=== PATIENT | female | born 1990 | race African-American/Black ===

== ENCOUNTER 2016-03-11 18:15 | Emergency (ER) | payer MEDICAID ==
--- NOTE | 2016-03-11 18:43 | ER Document Report ---
ED Medical Screen (RME) - General Stated Complaint: ABDOMINAL CRAMPING Mode of Arrival: Ambulatory Information source: Patient Notes: Patient presents to the emergency department with left lower quadrant and lower abdominal pain. She reports pain for the past 2-3 weeks. She was evaluated by a provider. No results noted. Last menses was in December. I greeted and performed a rapid initial assessment of this patient. Comprehensive ED assessment and evaluation of the patient, analysis of test results and completion of the medical decision making process will be conducted by additional ED providers. TRAVEL OUTSIDE OF THE [place] IN LAST 30 DAYS: No - Related Data Allergies/Adverse Reactions: onion Allergy (Uncoded 03/11/16 18:42) Past Medical History Pulmonary Medical History: Reports: Hx Asthma Neurological Medical History: Reports: Hx Migraine Psychiatric Medical History: Reports: Hx Attention Deficit Hyperactivity Disorder, Hx Depression Past Surgical History: Reports: Hx Section - Immunizations Hx Diphtheria, Pertussis, Tetanus Vaccination: Yes Physical Exam - Vital signs Vitals: Temp Pulse Resp BP Pulse Ox 98.4 F 96 20 136/82 H 98 03/11/16 18:38 03/11/16 18:38 03/11/16 18:38 03/11/16 18:38 03/11/16 18:38 Course - Vital Signs Vital signs: Temp Pulse Resp BP Pulse Ox 98.4 F 96 20 136/82 H 98 03/11/16 18:38 03/11/16 18:38 03/11/16 18:38 03/11/16 18:38 03/11/16 18:38
[2016-03-11 20:42] LABS: ABSOLUTE EOSINOPHILS # (AUTO) 0.1 10^3/uL (0.0-0.6); ABSOLUTE LYMPHOCYTES (AUTO) 2.4 10^3/uL (0.5-4.7); ABSOLUTE MONOCYTES (AUTO) 0.3 10^3/uL (0.1-1.4); ABSOLUTE NEUT (AUTO) 2.9 10^3/uL (1.7-8.2); BASOPHILS % (AUTO) 0.4 % (0-2); EOSINOPHILS % (AUTO) 2.1 % (0-6); HEMOGLOBIN 12.1 g/dL (12.0-15.5); HGB HCT DIFFERENCE -0.7; LYMPHOCYTES % (AUTO) 41.7 % (13-45); MEAN CORPUSCULAR HGB CONC 32.7 g/dL (32.0-36.0); MEAN CORPUSCULAR VOLUME 86 fl (80-97); MONOCYTES % (AUTO) 4.6 % (3-13); RED BLOOD COUNT 4.32 10^6/uL (3.72-5.28); RED CELL DISTRIBUTION WIDTH 13.1 % (11.5-14.0); SEGMENTED NEUTROPHILS % (AUTO) 51.2 % (42-78); WHITE BLOOD COUNT 5.8 10^3/uL (4.0-10.5)
[2016-03-11 20:49] LABS: APPEARANCE,URINE CLEAR; BILIRUBIN,URINE NEGATIVE (NEGATIVE); GLUCOSE, URINE NEGATIVE (NEGATIVE); KETONES,URINE NEGATIVE (NEGATIVE); LEUKOCYTE ESTERASE,URINE NEGATIVE (NEGATIVE); NITRITE,URINE NEGATIVE (NEGATIVE); PROTEIN,URINE NEGATIVE (NEGATIVE); URINE SPECIFIC GRAVITY 1.031; UROBILINOGEN,URINE NEGATIVE mg/dL (<2.0)
[2016-03-11 21:02] LABS: ALANINE AMINOTRANSFERASE 30 U/L (9-52); ALBUMIN 4.3 g/dL (3.5-5.0); ALKALINE PHOSPHATASE 107 U/L (38-126); ANION GAP 14 (5-19); ASPARTATE AMINO TRANSFERASE 23 U/L (14-36); BILIRUBIN,TOTAL 0.4 mg/dL (0.2-1.3); BLOOD UREA NITROGEN 14 mg/dL (7-20); CALCIUM 9.4 mg/dL (8.4-10.2); CARBON DIOXIDE 25 mmol/L (22-30); CHLORIDE 105 mmol/L (98-107); CREATININE RESULT 0.77 mg/dL (0.52-1.25); GLUCOSE 118 mg/dL (75-110); POTASSIUM 4.1 mmol/L (3.6-5.0); SODIUM 143.7 mmol/L (137-145); TOTAL PROTEIN 6.6 g/dL (6.3-8.2)
[2016-03-11] MEDS ORDERED: ONDANSETRON 4 MG TAB.RAPDIS PO ONE (22:07)
--- NOTE | 2016-03-11 22:08 | ER Document Report ---
ED GI/ - General Chief Complaint: Pelvic Pain Stated Complaint: ABDOMINAL CRAMPING Time seen by provider: 22:08 Mode of Arrival: Ambulatory Notes: Patient is a 25-year-old female that comes emergency department for chief complaint of pain in her lower abdomen/pelvic area, worse on the left side but also occasionally on the right side. She reports some nausea, denies vomiting. She denies fever, dysuria, flank pain, vaginal bleeding or discharge. Last menstrual period was December, she has had irregular periods ever since she delivered her most recent child. Patient denies any daily medications. TRAVEL OUTSIDE OF THE [place] IN LAST 30 DAYS: No - Related Data Allergies/Adverse Reactions: onion Allergy (Uncoded 03/11/16 18:42) Past Medical History - General Information source: Patient - Social History Smoking Status: Current Every Day Smoker Chew tobacco use (# tins/day): No Frequency of alcohol use: None Drug Abuse: None Lives with: Family Family History: Reviewed & Not Pertinent Patient has suicidal ideation: No Patient has homicidal ideation: No Pulmonary Medical History: Reports: Hx Asthma Neurological Medical History: Reports: Hx Migraine Renal/ Medical History: Denies: Hx Peritoneal Dialysis Psychiatric Medical History: Reports: Hx Attention Deficit Hyperactivity Disorder, Hx Depression Past Surgical History: Reports: Hx Section - Immunizations Hx Diphtheria, Pertussis, Tetanus Vaccination: Yes Hx Pneumococcal Vaccination: 02/27/11 Review of Systems - Review of Systems Constitutional: No symptoms reported EENT: No symptoms reported Cardiovascular: No symptoms reported Respiratory: No symptoms reported Gastrointestinal: See HPI Genitourinary: See HPI Female Genitourinary: See HPI Musculoskeletal: No symptoms reported Skin: No symptoms reported Hematologic/Lymphatic: No symptoms reported Neurological/Psychological: No symptoms reported Physical Exam - Vital signs Vitals: Temp Pulse Resp BP Pulse Ox 98.4 F 96 20 136/82 H 98 03/11/16 18:38 03/11/16 18:38 03/11/16 18:38 03/11/16 18:38 03/11/16 18:38 Interpretation: Normal - General General appearance: Appears well, Alert In distress: None - HEENT Head: Normocephalic, Atraumatic Eyes: Normal Pupils: PERRL - Respiratory Respiratory status: No respiratory distress Chest status: Nontender Breath sounds: Normal Chest palpation: Normal - Cardiovascular Rhythm: Regular Heart sounds: Normal auscultation Murmur: No - Abdominal Inspection: Normal Distension: No distension Bowel sounds: Normal Tenderness: Tender - Mild generalized tenderness in the lower abdomen and pelvic area. No: Guarding - Genitourinary External exam: Normal Speculum exam: Cervix closed, Vaginal discharge - Moderately large amount of whitish vaginal discharge. No: Cervix open Vaginal bleeding: None Bimanuel exam: Normal. No: Cervical motion tender - Back Back: Normal, Nontender. 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 Wet mount showing bacteria and white blood cells, physical exam showing moderately large amount of vaginal discharge. Patient treated with Rocephin, azithromycin, Flagyl, patient instructed to follow-up with primary care and return for any concerning symptoms. Patient states understanding and agreement. - Vital Signs Vital signs: Temp Pulse Resp BP Pulse Ox 98.6 F 92 16 133/88 H 97 03/12/16 00:24 03/12/16 00:24 03/12/16 00:24 03/12/16 00:24 03/12/16 00:24 - Laboratory Result Diagrams: 03/11/16 19:58 03/11/16 19:58 Laboratory results interpreted by me: 03/11/16 03/11/16 19:58 19:58 Glucose 118 H Urine Ascorbic Acid 20 H Discharge - Discharge Clinical Impression: Pelvic pain Condition: Stable Disposition: HOME, SELF-CARE Additional Instructions: Your examination and workup indicated a pelvic infection, most likely bacterial vaginosis, you have been treated for this. Complete the treatment with Flagyl prescription as directed. The ultrasound and blood work did not show any acute findings. Follow-up with your primary care provider. Return to emergency department for any concerning or worsening symptoms. Prescriptions: Metronidazole [Flagyl 500 mg Tablet] 500 mg PO BID #14 tablet Referrals: MARCO ONEILL MD [Primary Care Provider] - Follow up as needed
[2016-03-11] MEDS ORDERED: LIDOCAINE 1% INJ-PF (10 MG/ML) 30 ML SDV INJ ONE (23:53)
[2016-03-11] MEDS ORDERED: CEFTRIAXONE INJ 250 MG VIAL IM ONE (23:53)
[2016-03-11] MEDS ORDERED: METRONIDAZOLE 500 MG TABLET PO ONE (23:54)
[2016-03-11] MEDS ORDERED: AZITHROMYCIN 250 MG TABLET PO ONE (23:54)
[2016-03-12 00:31] VITALS: BP 133/88
[2016-03-12 01:13] LABS: CHLAM PCR NOT DETECTED (NOT DETECT)
== END 2016-03-12 00:31 | disposition home or self-care (01) ==
LOC: ER 18:15
DX: R10.2 Pelvic and perineal pain (principal); R11.0 Nausea; N89.8 Other specified noninflammatory disorders of vagina; N92.6 Irregular menstruation, unspecified; F17.200 Nicotine dependence, unspecified, uncomplicated; J45.909 Unspecified asthma, uncomplicated; Z91.018 Allergy to other foods
CPT/HCPCS: 99284; 96372; 36415; 87210; 84703; 85025; 80053; 81001; 87491; 87591; 76830; 93976; Q0144; S0119; J3490 ×2; J0696

== ENCOUNTER 2016-05-09 10:15 | Emergency (ER) | payer MEDICAID ==
--- NOTE | 2016-05-09 10:22 | ER Document Report ---
ED Medical Screen (RME) - General Stated Complaint: BODY PAIN Mode of Arrival: Ambulatory Information source: Patient Notes: pt c/o rectal pain, hemorrhoids. Reports her whole body hurts because of it. Complaints of some nausea but denies fever vomiting diarrhea. He has history of asthma. I have greeted and performed a rapid initial assessment of this patient. A comprehensive ED assessment and evaluation of the patient, analysis of test results and completion of the medical decision making process will be conducted by additional ED providers. TRAVEL OUTSIDE OF THE [place] IN LAST 30 DAYS: No - Related Data Allergies/Adverse Reactions: onion Allergy (Uncoded 05/09/16 10:20) Past Medical History Pulmonary Medical History: Reports: Hx Asthma Neurological Medical History: Reports: Hx Migraine Renal/ Medical History: Denies: Hx Peritoneal Dialysis Psychiatric Medical History: Reports: Hx Attention Deficit Hyperactivity Disorder, Hx Depression Past Surgical History: Reports: Hx Section - Immunizations Hx Diphtheria, Pertussis, Tetanus Vaccination: Yes Physical Exam - Vital signs Vitals: Temp Pulse Resp BP Pulse Ox 98.2 F 89 16 129/86 H 96 05/09/16 10:20 05/09/16 10:20 05/09/16 10:20 05/09/16 10:20 05/09/16 10:20 Course - Vital Signs Vital signs: Temp Pulse Resp BP Pulse Ox 98.2 F 89 16 129/86 H 96 05/09/16 10:20 05/09/16 10:20 05/09/16 10:20 05/09/16 10:20 05/09/16 10:20
[2016-05-09 11:48] LABS: APPEARANCE,URINE SLIGHTLY-CLOUDY; BILIRUBIN,URINE NEGATIVE (NEGATIVE); GLUCOSE, URINE NEGATIVE (NEGATIVE); KETONES,URINE NEGATIVE (NEGATIVE); LEUKOCYTE ESTERASE,URINE NEGATIVE (NEGATIVE); NITRITE,URINE NEGATIVE (NEGATIVE); PROTEIN,URINE NEGATIVE (NEGATIVE); URINE SPECIFIC GRAVITY 1.027
[2016-05-09 12:00] LABS: ABSOLUTE EOSINOPHILS # (AUTO) 0.1 10^3/uL (0.0-0.6); ABSOLUTE LYMPHOCYTES (AUTO) 2.2 10^3/uL (0.5-4.7); ABSOLUTE MONOCYTES (AUTO) 0.3 10^3/uL (0.1-1.4); ABSOLUTE NEUT (AUTO) 2.4 10^3/uL (1.7-8.2); BASOPHILS % (AUTO) 0.4 % (0-2); EOSINOPHILS % (AUTO) 2.5 % (0-6); HEMATOCRIT 38.5 % (36.0-47.0); HEMOGLOBIN 12.7 g/dL (12.0-15.5); HGB HCT DIFFERENCE -0.4; LYMPHOCYTES % (AUTO) 43.2 % (13-45); MEAN CORPUSCULAR VOLUME 85 fl (80-97); MONOCYTES % (AUTO) 5.4 % (3-13); RED BLOOD COUNT 4.54 10^6/uL (3.72-5.28); SEGMENTED NEUTROPHILS % (AUTO) 48.5 % (42-78)
--- NOTE | 2016-05-09 12:19 | ER Document Report ---
ED GI/ - General Chief Complaint: Rectal Pain Stated Complaint: BODY PAIN Time seen by provider: 12:18 Mode of Arrival: Ambulatory Information source: Patient Notes: 25-year-old female presents to ED for hemorrhoids rectal pain body aches and stomach pain. She says she has some nausea but no diarrhea or vomiting. This been going on since yesterday. TRAVEL OUTSIDE OF THE [place] IN LAST 30 DAYS: No - HPI Patient complains to provider of: Abdominal pain, Other - Rectal pain Onset: Just prior to arrival Timing/Duration: Sudden Quality of pain: Pressure - Rectum, Sharp Severity at maximum: Moderate Severity in ED: Moderate Pain Level: 3 Location: Rectal Vaginal bleeding (Compared to normal period): None Associated symptoms: Nausea, Other - Rectal pain and body aches Exacerbated by: Movement, Walking, Other - Bowel movement Relieved by: Denies Similar symptoms previously: Yes Recently seen / treated by doctor: No - Related Data Allergies/Adverse Reactions: onion Allergy (Uncoded 05/09/16 10:20) Past Medical History - General Information source: Patient - Social History Smoking Status: Current Every Day Smoker Chew tobacco use (# tins/day): No Frequency of alcohol use: None Drug Abuse: None Family History: Reviewed & Not Pertinent Patient has suicidal ideation: No Patient has homicidal ideation: No - Past Medical History Cardiac Medical History: Reports: None Pulmonary Medical History: Reports: Hx Asthma EENT Medical History: Reports: None Neurological Medical History: Reports: Hx Migraine Endocrine Medical History: Reports: None Renal/ Medical History: Reports: None Malignancy Medical History: Reports: None GI Medical History: Reports: None Musculoskeltal Medical History: Reports None Skin Medical History: Reports None Psychiatric Medical History: Reports: Hx Attention Deficit Hyperactivity Disorder, Hx Depression Traumatic Medical History: Reports: None Infectious Medical History: Reports: None Past Surgical History: Reports: Hx Section - Immunizations Hx Diphtheria, Pertussis, Tetanus Vaccination: Yes Hx Pneumococcal Vaccination: 02/27/11 Review of Systems - Review of Systems Constitutional: No symptoms reported EENT: No symptoms reported Cardiovascular: No symptoms reported Respiratory: No symptoms reported Gastrointestinal: Other - Rectal pain due to hemorrhoids internal and external Genitourinary: No symptoms reported Female Genitourinary: No symptoms reported Musculoskeletal: No symptoms reported Skin: No symptoms reported Hematologic/Lymphatic: No symptoms reported Neurological/Psychological: No symptoms reported Physical Exam - Vital signs Vitals: Temp Pulse Resp BP Pulse Ox 98.2 F 89 16 129/86 H 96 05/09/16 10:20 05/09/16 10:20 05/09/16 10:20 05/09/16 10:20 05/09/16 10:20 Interpretation: Normal - General General appearance: Appears well, Alert - HEENT Head: Normocephalic, Atraumatic Eyes: Normal Pupils: PERRL Ears: Normal External canal: Normal Tympanic membrane: Normal Sinus: Normal Nasal: Purulent discharge, Swelling Mouth/Lips: Normal Mucous membranes: Normal Pharynx: Post nasal drainage Neck: Normal - Respiratory Respiratory status: No respiratory distress Chest status: Nontender Breath sounds: Normal Chest palpation: Normal - Cardiovascular Rhythm: Regular Heart sounds: Normal auscultation Murmur: No - Abdominal Inspection: Normal Distension: No distension Bowel sounds: Normal Tenderness: Nontender. No: Tender Organomegaly: No organomegaly - Rectal Tenderness: Yes Hemorrhoids: Internal, External. No: Anal fissure, Mass - Back Back: Normal, Nontender - Extremities General upper extremity: Normal inspection, Nontender, Normal color, Normal ROM , Normal temperature General lower extremity: Normal inspection, Nontender, Normal color, Normal ROM , Normal temperature, Normal weight bearing. No: Chandni's sign - Neurological Neuro grossly intact: Yes Cognition: Normal Orientation: AAOx4 [place] Coma Scale Eye Opening: Spontaneous Raphael Coma Scale Verbal: Oriented [place] Coma Scale Motor: Obeys Commands Raphael Coma Scale Total: 15 Speech: Normal Motor strength normal: LUE, RUE, LLE, RLE Sensory: Normal - Psychological Associated symptoms: Normal affect, Normal mood - Skin Skin Temperature: Warm Skin Moisture: Dry Skin Color: Normal Course - Re-evaluation Re-evalutation: 05/09/16 19:08 Discussed assessment with patient we'll give patient hemorrhoid medicine prescription. Called pharmacy to get recommendation that will be covered by Medicaid. He recommended Proctosone HC which was ordered. - Vital Signs Vital signs: Temp Pulse Resp BP Pulse Ox 98.1 F 81 19 141/61 H 100 05/09/16 14:08 05/09/16 14:08 05/09/16 14:08 05/09/16 14:08 05/09/16 14:08 - Laboratory Result Diagrams: 05/09/16 11:40 05/09/16 11:40 Laboratory results interpreted by me: 05/09/16 10:50 Urine Urobilinogen 2.0 H Discharge - Discharge Clinical Impression: Hemorrhoids Qualifiers: Hemorrhoid type: unspecified Qualified Code(s): K64.9 - Unspecified hemorrhoids Condition: Stable Disposition: HOME, SELF-CARE Instructions: Family Physicians / Practices Additional Instructions: Hemorrhoids You have hemorrhoids. These are formed by enlargement of veins around the anus. The cause is increased pressure in the veins, from or straining at bowel movements. Hemorrhoids often cause itching and bleeding with bowel movements. When a hemorrhoid becomes clotted, severe pain and swelling result. Soothing creams and suppositories are often prescribed. Warm sitz-baths may also decrease pain, swelling, and itching. Eat a high-fiber diet. Stool softeners such as Metamucil will help. Keep the area very clean. Medicated cleansing pads (such as Tucks) are useful after bowel movements. A hose-mounted shower unit (like a shower massager at low water pressure) can be used to clean around tender hemorrhoid tags. You should call the doctor or return if you develop fever, increasing pain , or an enlarging mass around the anus, or if you simply fail to improve with treatment. FOLLOW-UP CARE: If you have been referred to a physician for follow-up care, call the physician s office for an appointment as you were instructed or within the next two days. If you experience worsening or a significant change in your symptoms, notify the physician immediately or return to the Emergency Department at any time for re-evaluation. Prescriptions: Hydrocortisone [Proctozone-Hc] 30 gm RC BIDP PRN #30 cream.gm. PRN Reason: Forms: Elevated Blood Pressure, Smoking Cessation Education
[2016-05-09 12:22] LABS: ALANINE AMINOTRANSFERASE 28 U/L (9-52); ALBUMIN 4.2 g/dL (3.5-5.0); ALKALINE PHOSPHATASE 101 U/L (38-126); ANION GAP 9 (5-19); ASPARTATE AMINO TRANSFERASE 18 U/L (14-36); BILIRUBIN,TOTAL 0.5 mg/dL (0.2-1.3); BLOOD UREA NITROGEN 10 mg/dL (7-20); CALCIUM 9.4 mg/dL (8.4-10.2); CARBON DIOXIDE 27 mmol/L (22-30); CHLORIDE 107 mmol/L (98-107); CREATININE RESULT 0.75 mg/dL (0.52-1.25); GLUCOSE 75 mg/dL (75-110); TOTAL PROTEIN 7.2 g/dL (6.3-8.2)
[2016-05-09 14:09] VITALS: BP 141/61
== END 2016-05-09 14:09 | disposition home or self-care (01) ==
LOC: ER 10:15
DX: K64.9 Unspecified hemorrhoids (principal); K62.89 Other specified diseases of anus and rectum; M79.1 Myalgia; R10.84 Generalized abdominal pain; R11.0 Nausea; F17.200 Nicotine dependence, unspecified, uncomplicated
CPT/HCPCS: 36415; 80053; 81001; 82553; 84702; 85025; 87086; 99283

== ENCOUNTER 2016-11-12 08:02 | Emergency (ER) | payer MEDICAID ==
[2016-11-12] MEDS ORDERED: IBUPROFEN 800 MG TABLET PO ONE (09:36)
--- NOTE | 2016-11-12 09:42 | ER Document Report ---
ED General - General Chief Complaint: Chest Pain Stated Complaint: CHEST PAIN Time Seen by Provider: 11/12/16 09:24 Mode of Arrival: Ambulatory Information source: Patient Notes: Patient presents emergency department with complaints of chest wall pain for the past 3 days. Patient reports the pain woke her up in the middle the night. She reports midsternal pain 3 days ago and last night she was having pain under her left ribs. She denies fever vomiting diarrhea. She denies cough. She denies trauma. She reports she has not been exercising lately. Patient reports it hurts when she moves hurts when she turns her head left to right. She also complains that it hurts more when she lifts up her children to carry them. Denies past cardiac history reports brother with a pacemaker. She reports she has a history of asthma but has not been using her inhaler. She reports she took Tylenol for the pain on . She reports she thought she was having heartburn so took Tums and Pepto-Bismol without relief of symptoms. TRAVEL OUTSIDE OF THE [place] IN LAST 30 DAYS: No - HPI Onset: Other - 3 days ago Quality of pain: Achy Severity: Severe Pain Level: 4 Associated symptoms: None Exacerbated by: Movement Relieved by: Denies Similar symptoms previously: No Recently seen / treated by doctor: No - Related Data Allergies/Adverse Reactions: onion Allergy (Uncoded 11/12/16 08:25) Past Medical History - General Information source: Patient Last Menstrual Period: last week - Social History Smoking Status: Current Every Day Smoker Cigarette use (# per day): Yes Chew tobacco use (# tins/day): No Frequency of alcohol use: Occasional Drug Abuse: None Occupation: none Lives with: Family Family History: Reviewed & Not Pertinent Patient has suicidal ideation: No Patient has homicidal ideation: No Pulmonary Medical History: Reports: Hx Asthma Neurological Medical History: Reports: Hx Migraine Renal/ Medical History: Denies: Hx Peritoneal Dialysis Psychiatric Medical History: Reports: Hx Attention Deficit Hyperactivity Disorder, Hx Depression Past Surgical History: Reports: Hx Section - Immunizations Hx Diphtheria, Pertussis, Tetanus Vaccination: Yes Hx Pneumococcal Vaccination: 02/27/11 Review of Systems - Review of Systems Notes: Review HPI for review of systems., All other systems negative Physical Exam - Vital signs Vitals: Temp Pulse Resp BP Pulse Ox 98.3 F 82 16 127/82 H 99 11/12/16 08:19 11/12/16 08:19 11/12/16 08:19 11/12/16 08:19 11/12/16 08:19 - Notes Notes: PHYSICAL EXAMINATION: GENERAL: Well-appearing and in no acute distress HEAD: Atraumatic, normocephalic. EYES: Pupils equal round and reactive to light, extraocular movements intact, sclera anicteric, conjunctiva are normal. ENT: nares patent, oropharynx clear without exudates. Moist mucous membranes. NECK: Normal range of motion, supple without lymphadenopathy LUNGS: CTAB and equal. No wheezes rales or rhonchi. no pain on palpation HEART: Regular rate and rhythm without murmurs ABDOMEN: Soft, no tenderness. No guarding, no rebound BACK: Denies back pain, no cva tenderness EXTREMITIES: Normal range of motion, no pitting edema. No cyanosis. NEUROLOGICAL: Cranial nerves grossly intact. Normal sensory/motor exams. PSYCH: Normal mood, normal affect. SKIN: Warm, Dry, normal turgor, no rashes or lesions noted Course - Re-evaluation Re-evalutation: 11/12/16 EKG sinus rhythm chest x-ray negative. Reports pain with movement but no pain at rest. Patient instructed on ibuprofen NSAIDs for pain. She was also instructed to follow-up with primary care provider within the next week for recheck. She verbalized understanding to all instructions. Speaks in clear voice no distress - Vital Signs Vital signs: Temp Pulse Resp BP Pulse Ox 98.1 F 80 16 123/83 100 11/12/16 10:24 11/12/16 10:24 11/12/16 10:24 11/12/16 10:24 11/12/16 10:24 - Diagnostic Test Radiology reviewed: Image reviewed, Reports reviewed - neg Discharge - Discharge Clinical Impression: Chest wall pain, Elevated blood pressure reading Condition: Stable Disposition: HOME, SELF-CARE Instructions: Chest Wall Pain ([facility]), Ibuprofen (General) ([facility]) Additional Instructions: *You have been evaluated for chest wall pain *Take medication as prescribed *Follow up with a primary care provider within 5 days *Return to ED for worsening condition, changes, needs *Return to ED if not better in 24 hours Monitor your blood pressure. Your blood pressure was elevated today. This may be because you were anxious, in pain or because you need medication. It is important to follow up with your primary care provider for full evaluation. Prescriptions: Ibuprofen [Motrin 800 mg Tablet] 800 mg PO TID #30 tablet Forms: Smoking Cessation Education, Elevated Blood Pressure
--- NOTE | 2016-11-12 09:53 | RADIOLOGY REPORT (SQ) ---
EXAM DESCRIPTION: CHEST PA/LAT COMPLETED DATE/TIME: 11/12/2016 9:43 am REASON FOR STUDY: chest pain COMPARISON: 10/23/2008. EXAM PARAMETERS: NUMBER OF VIEWS: two views TECHNIQUE: Digital Frontal and Lateral radiographic views of the chest acquired. RADIATION DOSE: NA LIMITATIONS: none FINDINGS: LUNGS AND PLEURA: No opacities, masses or pneumothorax. No pleural effusion. MEDIASTINUM AND HILAR STRUCTURES: No masses or contour abnormalities. HEART AND VASCULAR STRUCTURES: Heart normal size. No evidence for failure. BONES: No acute findings. HARDWARE: None in the chest. OTHER: No other significant finding. IMPRESSION: NO SIGNIFICANT RADIOGRAPHIC FINDING IN THE CHEST. TECHNICAL DOCUMENTATION: JOB ID: [id number] [employer]- All Rights Reserved
[2016-11-12 10:28] VITALS: BP 123/83
--- NOTE | 2016-11-12 11:44 | EKG REPORT ---
SEVERITY:- NORMAL ECG - SINUS RHYTHM : Confirmed by: Xiao Baker 12-Nov-2016 11:43:57
== END 2016-11-12 10:29 | disposition home or self-care (01) ==
LOC: ER 08:02
DX: R07.89 Other chest pain (principal); R03.0 Elevated blood-pressure reading, without diagnosis of hypertension; F17.210 Nicotine dependence, cigarettes, uncomplicated
CPT/HCPCS: 93005; 99285; 71020; 93010; J3490

== ENCOUNTER 2016-11-13 23:29 | Emergency (ER) | payer MEDICAID ==
--- NOTE | 2016-11-14 01:51 | ER Document Report ---
ED Cardiac - General Chief Complaint: Chest Pain Stated Complaint: CHEST PAIN Time Seen by Provider: 11/14/16 01:11 Mode of Arrival: Ambulatory Information source: Patient TRAVEL OUTSIDE OF THE [place] IN LAST 30 DAYS: No - HPI Patient complains to provider of: Chest pain Was the onset of pain: Sudden Is the pain a: New problem Chest pain location: Substernal Quality of pain: Sharp, Stabbing Associated symptoms: None Exacerbated by: Coughing, Deep breaths, Torso movement Relieved by: Nothing Notes: Patient is a 26-year-old female presenting to the emergency room complaining of substernal chest pain that started 5 days ago and has worsened, she reports is worse with certain movements and laying flat, she reports a nonproductive cough , no fever, no injury, no history of similar symptoms previously, she is a smoker and has a history of asthma, she takes oral control, denies any recent procedures or periods of immobilization, no calf pain, no history of coronary artery disease, or DVT/PE - Related Data Allergies/Adverse Reactions: onion Allergy (Uncoded 11/13/16 23:41) Past Medical History - General Information source: Patient - Social History Smoking Status: Current Every Day Smoker Family History: Reviewed & Not Pertinent Patient has suicidal ideation: No Patient has homicidal ideation: No Pulmonary Medical History: Reports: Hx Asthma Neurological Medical History: Reports: Hx Migraine Renal/ Medical History: Denies: Hx Peritoneal Dialysis Psychiatric Medical History: Reports: Hx Attention Deficit Hyperactivity Disorder, Hx Depression Past Surgical History: Reports: Hx Section - Immunizations Hx Diphtheria, Pertussis, Tetanus Vaccination: Yes Hx Pneumococcal Vaccination: 02/27/11 Review of Systems - Review of Systems Constitutional: No symptoms reported EENT: No symptoms reported Cardiovascular: Chest pain Respiratory: No symptoms reported Gastrointestinal: No symptoms reported Genitourinary: No symptoms reported Female Genitourinary: No symptoms reported Musculoskeletal: No symptoms reported Skin: No symptoms reported Hematologic/Lymphatic: No symptoms reported Neurological/Psychological: No symptoms reported -: Yes All other systems reviewed and negative Physical Exam - Vital signs Vitals: Temp Pulse Resp BP Pulse Ox 98.0 F 85 18 132/89 H 100 11/13/16 23:44 11/13/16 23:44 11/13/16 23:44 11/13/16 23:44 11/13/16 23:44 Interpretation: Normal - General General appearance: Appears well, Alert - HEENT Head: Normocephalic, Atraumatic Eyes: Normal Pupils: PERRL - Respiratory Respiratory status: No respiratory distress Chest status: Nontender Breath sounds: Normal Chest palpation: Normal - Cardiovascular Rhythm: Regular Heart sounds: Normal auscultation Murmur: No - Abdominal Inspection: Normal Distension: No distension Bowel sounds: Normal Tenderness: Nontender Organomegaly: No organomegaly - Back Back: Normal, Nontender - Extremities General upper extremity: Normal inspection, Nontender, Normal color, Normal ROM , Normal temperature General lower extremity: Normal inspection, Nontender, Normal color, Normal ROM , Normal temperature, Normal weight bearing. No: Chandni's sign - Neurological Neuro grossly intact: Yes Cognition: Normal Orientation: AAOx4 Raphael Coma Scale Eye Opening: Spontaneous Raphael Coma Scale Verbal: Oriented Raphael Coma Scale Motor: Obeys Commands [place] Coma Scale Total: 15 Speech: Normal Motor strength normal: LUE, RUE, LLE, RLE Sensory: Normal - Psychological Associated symptoms: Normal affect, Normal mood - Skin Skin Temperature: Warm Skin Moisture: Dry Skin Color: Normal Course - Re-evaluation Re-evalutation: 11/14/16 06:03 During my initial assessment patient was quite vocal about her displeasure and having to wait so long to be seen this evening, stating that she just wants some pain meds so she can go home, that she has children at home she has to take care of, and the pain is causing her to lose sleep, she has pain when she lifts her children, she was quite short with me and threatened to leave, I did inform patient that I was concerned about her symptoms, I apologized repeatedly for her long wait in the emergency department this evening and explained to her that I would like to do a more thorough evaluation today than when she previously had as I am concerned that her symptoms have worsened significantly despite taking Motrin as prescribed, patient was eventually agreeable to this, I did have a d-dimer completed which was markedly elevated, patient was agreeable to then receiving a CTA to rule out a PE, CVA does show bilateral consolidations consistent with multilobar pneumonia, patient's vital signs are stable, her lab findings are otherwise unremarkable, therefore she was started on antibiotics and provided with pain medication, advised to follow-up with her primary care provider or return to the emergency room if symptoms worsen, patient acknowledges understanding and agreement with this plan - Vital Signs Vital signs: Temp Pulse Resp BP Pulse Ox 98.0 F 68 16 131/85 H 97 11/13/16 23:44 11/14/16 04:06 11/14/16 04:06 11/14/16 04:06 11/14/16 04:06 - Laboratory Result Diagrams: 11/14/16 01:55 11/14/16 01:55 Laboratory results interpreted by me: 11/14/16 11/14/16 01:55 01:55 D-Dimer 7.43 H Chloride 108 H Glucose 67 L Creatine Kinase 164 H - Diagnostic Test Radiology reviewed: Image reviewed, Reports reviewed - EKG Interpretation by Me EKG shows normal: Sinus rhythm Rate: Normal Rhythm: NSR When compared to previous EKG there are: No significant change Discharge - Discharge Clinical Impression: Pneumonia Qualifiers: Pneumonia type: due to unspecified organism Laterality: bilateral Lung location : lower lobe of lung Qualified Code(s): J18.9 - Pneumonia, unspecified organism Condition: Stable Disposition: HOME, SELF-CARE Instructions: Oral Narcotic Medication ([facility]), Pneumonia ([facility]) Additional Instructions: Follow up with your primary care provider in one to 2 days. Return to the emergency room immediately if symptoms worsen or any additional concerns. Prescriptions: Azithromycin [Zithromax 250 mg Tablet] 250 mg PO ASDIR PRN #6 tablet PRN Reason: Oxycodone HCl/Acetaminophen [Percocet 5-325 mg Tablet] 1 - 2 tab PO ASDIR PRN # 15 tablet PRN Reason: Referrals: LAILA SPEAR MD [Primary Care Provider] - Follow up as needed
[2016-11-14] MEDS ORDERED: OXYCODONE-ACETAMINOPHEN 5-325 MG TABLET PO ONE (01:55)
[2016-11-14 02:15] LABS: ABSOLUTE EOSINOPHILS # (AUTO) 0.2 10^3/uL (0.0-0.6); ABSOLUTE LYMPHOCYTES (AUTO) 3.2 10^3/uL (0.5-4.7); ABSOLUTE MONOCYTES (AUTO) 0.5 10^3/uL (0.1-1.4); BASOPHILS % (AUTO) 0.4 % (0-2); EOSINOPHILS % (AUTO) 2.9 % (0-6); HEMATOCRIT 36.5 % (36.0-47.0); HGB HCT DIFFERENCE -0.5; LYMPHOCYTES % (AUTO) 40.8 % (13-45); MEAN CORPUSCULAR HEMOGLOBIN 27.3 pg (27.0-33.4); MEAN CORPUSCULAR HGB CONC 32.8 g/dL (32.0-36.0); MEAN CORPUSCULAR VOLUME 83 fl (80-97); RED BLOOD COUNT 4.38 10^6/uL (3.72-5.28); RED CELL DISTRIBUTION WIDTH 13.6 % (11.5-14.0); SEGMENTED NEUTROPHILS % (AUTO) 49.9 % (42-78)
[2016-11-14 02:22] LABS: ALANINE AMINOTRANSFERASE 25 U/L (9-52); ALBUMIN 4.3 g/dL (3.5-5.0); ALKALINE PHOSPHATASE 94 U/L (38-126); ANION GAP 10 (5-19); ASPARTATE AMINO TRANSFERASE 16 U/L (14-36); BILIRUBIN,DIRECT 0.3 mg/dL (0.0-0.4); BILIRUBIN,TOTAL 0.4 mg/dL (0.2-1.3); BLOOD UREA NITROGEN 14 mg/dL (7-20); CALCIUM 9.6 mg/dL (8.4-10.2); CARBON DIOXIDE 25 mmol/L (22-30); CHLORIDE 108 mmol/L (98-107); CREATINE KINASE 164 U/L (30-135); CREATININE RESULT 0.81 mg/dL (0.52-1.25); GLUCOSE 67 mg/dL (75-110); POTASSIUM 4.3 mmol/L (3.6-5.0); SODIUM 142.8 mmol/L (137-145); TOTAL PROTEIN 7.7 g/dL (6.3-8.2)
[2016-11-14 02:34] LABS: CREATINE KINASE MB 0.43 ng/mL (<4.55); TROPONIN I < 0.012 ng/mL
[2016-11-14] MEDS ORDERED: MORPHINE SULFATE 10 MG/ML INJ IV ONE (02:37)
--- NOTE | 2016-11-14 03:32 | RADIOLOGY REPORT (SQ) ---
EXAM DESCRIPTION: CTA CHEST COMPLETED DATE/TIME: 11/14/2016 3:09 am REASON FOR STUDY: SOB COMPARISON: CR, 11/12/2016. TECHNIQUE: CT scan of the chest performed using helical scanning technique with dynamic intravenous contrast injection. Images reviewed with lung, soft tissue and bone windows. Reconstructed coronal and sagittal MPR images reviewed. Additional 3 dimensional post-processing performed to develop Maximal Intensity Projection images (NE P). All images stored on PACS. All CT scanners at this facility use dose modulation, iterative reconstruction, and/or weight based d osing when appropriate to reduce radiation dose to as low as reasonably achievable (ALARA). [facility]: Dose Right [facility]: CareDose [facility]: Dose Right [facility]: Teradose 4D [facility]: Timetovisit CONTRAST TYPE AND DOSE: contrast/concentration: Isovue 370.00 mg/ml; Total Contrast Delivered: 82.0 ml; Total Saline Delivered: 110.0 ml Contrast bolus optimized for the pulmonary arteries. Not diagnostic for the aorta. RENAL FUNCTION: None required. The patient is less than 50 years old. RADIATION DOSE: Up-to-date CT equipment and radiation dose reduction techniques were employed. CTDIv ol: 13.2 - 16.3 mGy. DLP: 627 mGy-cm. . LIMITATIONS: None. FINDINGS: LUNGS AND PLEURA: 2 consolidations of the left lower lobe measuring 2.9 cm in of the right mid lung field peripherally measuring 3.5 cm. AORTA AND GREAT VESSELS: No aneurysm. Contrast bolus not optimized for the aorta. HEART: No pericardial effusion. No significant coronary artery calcifications. PULMONARY ARTERIES: No emboli visualized in the main pulmonary arteries or the segmental branches. HILAR AND MEDIASTINAL STRUCTURES: No identified masses or abnormal nodes. HARDWARE: None in the chest. UPPER ABDOMEN: No significant findings. Limited exam. THYROID AND OTHER SOFT TISSUES: No masses. No adenopathy. BONES: No acute or significant finding. 3D MIPS: Confirm above findings. OTHER: No other significant finding. IMPRESSION: 2 small consolidations of bilateral lungs consistent with multifocal pneumonia. No evid ence of pulmonary emboli. COMMENT: Quality ID # [id number]: Final reports with documentation of one or more dose reduction techniques (e.g., Automated exposure control, adjustment of the mA and/or kV according to patient size, use of iterative reconstruction technique) TECHNICAL DOCUMENTATION: JOB ID: [id number]- All Rights Reserved
[2016-11-14] MEDS ORDERED: AZITHROMYCIN 250 MG TABLET PO ONE (03:53)
[2016-11-14 04:07] VITALS: BP 131/85
--- NOTE | 2016-11-14 07:12 | EKG REPORT ---
SEVERITY:- NORMAL ECG - SINUS RHYTHM : Confirmed by: Elmer Romeo MD 14-Nov-2016 07:12:37
== END 2016-11-14 04:06 | disposition home or self-care (01) ==
LOC: ER 23:29
DX: J18.9 Pneumonia, unspecified organism (principal); R07.9 Chest pain, unspecified; R05 Cough; F17.200 Nicotine dependence, unspecified, uncomplicated
CPT/HCPCS: 93005; 99285; 96374; 36415; 82553; 82550; 84703; 85025; 80053; 84484; 85379; 71275; 93010; Q0144; J2270

== ENCOUNTER 2017-12-16 19:39 | Emergency (ER) | payer MEDICAID ==
[2017-12-16] MEDS ORDERED: IPRATROPIUM/ALBUTEROL 0.5-2.5 MG/3 ML AMPUL NEB ONE (20:11)
[2017-12-16] MEDS ORDERED: MAGNESIUM SULFATE/D5W 1 GM/100 ML RTUPB IV ONE (20:12)
--- NOTE | 2017-12-16 20:13 | ER Document Report ---
ED Medical Screen (RME) - General Chief Complaint: Chest Pain Stated Complaint: CHEST PAIN Time Seen by Provider: 12/16/17 20:08 TRAVEL OUTSIDE OF THE [place] IN LAST 30 DAYS: No - HPI Notes: 12/16/17 20:12 Chest pain difficulty breathing ongoing greater than 24 hours history of smoking along with asthma. - Related Data Allergies/Adverse Reactions: onion Allergy (Uncoded 11/13/16 23:41) Past Medical History - Social History Chew tobacco use (# tins/day): No Frequency of alcohol use: Occasional Drug Abuse: None Pulmonary Medical History: Reports: Hx Asthma Neurological Medical History: Reports: Hx Migraine Renal/ Medical History: Denies: Hx Peritoneal Dialysis Psychiatric Medical History: Reports: Hx Attention Deficit Hyperactivity Disorder, Hx Depression Past Surgical History: Reports: Hx Section - Immunizations Hx Diphtheria, Pertussis, Tetanus Vaccination: Yes Review of Systems - Review of Systems Cardiovascular: Chest pain Respiratory: Short of breath -: Yes All other systems reviewed and negative Physical Exam - Vital signs Vitals: Resp 17 12/16/17 19:57 - Respiratory Respiratory status: No respiratory distress Chest status: Nontender Breath sounds: Wheezing Chest palpation: Normal - Cardiovascular Rhythm: Regular Heart sounds: Normal auscultation Course - Vital Signs Vital signs: Temp Pulse Resp BP Pulse Ox 99.0 F 94 17 151/93 H 99 12/16/17 19:58 12/16/17 19:58 12/16/17 19:58 12/16/17 19:58 12/16/17 19:58 Doctor's Discharge - Discharge Referrals: LAILA SPEAR MD [Primary Care Provider] - Follow up as needed
[2017-12-16 20:37] LABS: ABSOLUTE EOSINOPHILS # (AUTO) 0.2 10^3/uL (0.0-0.6); ABSOLUTE LYMPHOCYTES (AUTO) 3.1 10^3/uL (0.5-4.7); ABSOLUTE MONOCYTES (AUTO) 0.4 10^3/uL (0.1-1.4); ABSOLUTE NEUT (AUTO) 2.6 10^3/uL (1.7-8.2); BASOPHILS % (AUTO) 0.3 % (0-2); EOSINOPHILS % (AUTO) 2.6 % (0-6); HEMATOCRIT 37.9 % (36.0-47.0); HEMOGLOBIN 12.5 g/dL (12.0-15.5); MEAN CORPUSCULAR HEMOGLOBIN 27.7 pg (27.0-33.4); MEAN CORPUSCULAR VOLUME 84 fl (80-97); MONOCYTES % (AUTO) 5.8 % (3-13); PLATELET COUNT 328 10^3/uL (150-450); RED BLOOD COUNT 4.52 10^6/uL (3.72-5.28); RED CELL DISTRIBUTION WIDTH 13.5 % (11.5-14.0); SEGMENTED NEUTROPHILS % (AUTO) 41.3 % (42-78); TOTAL CELLS COUNTED % (AUTO) 100 %; WHITE BLOOD COUNT 6.2 10^3/uL (4.0-10.5)
[2017-12-16 20:49] LABS: ANION GAP 7 (5-19); BLOOD UREA NITROGEN 7 mg/dL (7-20); CALCIUM 9.2 mg/dL (8.4-10.2); CARBON DIOXIDE 28 mmol/L (22-30); CHLORIDE 106 mmol/L (98-107); GLUCOSE 93 mg/dL (75-110); POTASSIUM 4.6 mmol/L (3.6-5.0); SODIUM 140.9 mmol/L (137-145)
--- NOTE | 2017-12-16 20:53 | ER Document Report ---
ED Cardiac - General Chief Complaint: Chest Pain Stated Complaint: CHEST PAIN Time Seen by Provider: 12/16/17 20:08 Notes: 27-year-old female patient emergency department complaining of chest pain. States that she is short of breath hurts to take a deep breath. She has history of asthma. Nothing seems to make it better or worse. No fever, chills , sweats. No recent long trips or travel. No prior history of DVT or pulmonary embolism. Not on control. No recent surgeries. TRAVEL OUTSIDE OF THE [place] IN LAST 30 DAYS: No - HPI Patient complains to provider of: Chest pain, Chest tightness - Related Data Allergies/Adverse Reactions: onion Allergy (Uncoded 11/13/16 23:41) Past Medical History - General Information source: Patient - Social History Smoking Status: Current Every Day Smoker Chew tobacco use (# tins/day): No Frequency of alcohol use: Occasional Drug Abuse: None Lives with: Family Family History: Reviewed & Not Pertinent Patient has suicidal ideation: No Patient has homicidal ideation: No Pulmonary Medical History: Reports: Hx Asthma Neurological Medical History: Reports: Hx Migraine Renal/ Medical History: Denies: Hx Peritoneal Dialysis Psychiatric Medical History: Reports: Hx Attention Deficit Hyperactivity Disorder, Hx Depression Past Surgical History: Reports: Hx Section - Immunizations Hx Diphtheria, Pertussis, Tetanus Vaccination: Yes Hx Pneumococcal Vaccination: 02/27/11 Review of Systems - Review of Systems Notes: Constitutional: denies: Chills, Diaphoresis, Fever, Malaise, Weakness EENT: denies: Eye discharge, Blurred vision, Tearing, Double vision, Nose congestion, Nose discharge, Throat swelling, Mouth pain Cardiovascular: denies: Palpitations, Heart racing,. Complaining of chest pain and tightness in her chest with pain with deep inspiration Respiratory: denies: Cough, Wheezing, Shortness of breath. STates that it hurts to take a deep breath Gastrointestinal: denies: Abdominal pain, Diarrhea, Nausea, Vomiting, Black stools, bright red blood in stool Genitourinary: denies: Burning, Dysuria, Discharge, Frequency, Flank pain, Hematuria Musculoskeletal: denies: Joint pain, Joint swelling, Muscle pain, Muscle stiffness, back pain Hematologic/Lymphatic: denies: Anemia, Easy bleeding, Easy bruising, Blood clots Neurological/Psychological: denies: Confusion, Dementia, Depression, Loss of consciousness Skin: No lesions, no masses, no skin breakdown, no abscesses Physical Exam - Vital signs Vitals: Resp 17 12/16/17 19:57 Interpretation: Normal - General General appearance: Appears well, Alert - HEENT Head: Normocephalic, Atraumatic Eyes: Normal Pupils: PERRL - Respiratory Respiratory status: No respiratory distress Chest status: Nontender Breath sounds: Normal Chest palpation: Normal - Cardiovascular Rhythm: Regular Heart sounds: Normal auscultation Murmur: No - Abdominal Inspection: Normal Distension: No distension Bowel sounds: Normal Tenderness: Nontender Organomegaly: No organomegaly - Back Back: Normal, Nontender - Extremities General upper extremity: Normal inspection, Nontender, Normal color, Normal ROM , Normal temperature General lower extremity: Normal inspection, Nontender, Normal color, Normal ROM , Normal temperature, Normal weight bearing. No: Chandni's sign - Neurological Neuro grossly intact: Yes Cognition: Normal Orientation: AAOx4 Raphael Coma Scale Eye Opening: Spontaneous Raphael Coma Scale Verbal: Oriented [place] Coma Scale Motor: Obeys Commands [place] Coma Scale Total: 15 Speech: Normal Motor strength normal: LUE, RUE, LLE, RLE Sensory: Normal - Psychological Associated symptoms: Normal affect, Normal mood - Skin Skin Temperature: Warm Skin Moisture: Dry Skin Color: Normal Course - Re-evaluation Re-evalutation: 12/16/17 21:56 Hearing 27-year-old female in no acute distress. May be having a bronchospasm. Breathing treatment, mag sulfate, Toradol given. Chest x-ray unremarkable. EKG and labs unremarkable. Not . No concerns at this time for PE other pathology. Feeling better at this time. - Vital Signs Vital signs: Temp Pulse Resp BP Pulse Ox 99.0 F 94 17 151/93 H 99 12/16/17 19:58 12/16/17 19:58 12/16/17 19:58 12/16/17 19:58 12/16/17 19:58 - Laboratory Result Diagrams: 12/16/17 20:26 12/16/17 20:26 Laboratory results interpreted by me: 12/16/17 20:26 Seg Neutrophils % 41.3 L Lymphocytes % 50.0 H - EKG Interpretation by Me EKG shows normal: Sinus rhythm, [place], Intervals, QRS Complexes, ST-T Waves Discharge - Discharge Clinical Impression: Chest pain made worse by breathing, Bronchospasm Condition: Good Disposition: HOME, SELF-CARE Instructions: Chest Pain of Unclear Cause ([facility]), Bronchospasm ([facility]) Prescriptions: Albuterol Sulfate [Ventolin HFA MDI 18 GM] 1 - 2 puff IH Q4H PRN #1 mdi PRN Reason: Ibuprofen [Motrin 800 mg Tablet] 800 mg PO Q8H PRN 7 Days #21 tab PRN Reason: For Pain Scale 3-4 Prednisone 60 mg PO DAILY 4 Days #12 tablet Referrals: LAILA SPEAR MD [NO LOCAL MD] - Follow up in 3-5 days
[2017-12-16] MEDS ORDERED: KETOROLAC TROMETHAMINE INJ/PF 30 MG/1 ML SDV IV ONE (21:11)
--- NOTE | 2017-12-16 21:13 | RADIOLOGY REPORT (SQ) ---
Chest two views HISTORY: Shortness of breath. FINDINGS: The heart is not enlarged. No consolidation or pleural effusion. No pulmonary edema or pneumothorax. IMPRESSION: No acute disease.
--- NOTE | 2017-12-16 21:38 | EKG REPORT ---
SEVERITY:- NORMAL ECG - SINUS RHYTHM : Confirmed by: Elmer Romeo MD 16-Dec-2017 21:38:11
[2017-12-16] MEDS ORDERED: METHYLPREDNISOLONE INJ 125 MG/2 ML SDV IV ONE (21:57)
[2017-12-16] MEDS ORDERED: HYDROCODONE/ACETAMINOPHEN 5-325 MG (6 TAB/ER DISP) PO PRN (22:24)
[2017-12-16 22:44] VITALS: BP 131/81
== END 2017-12-16 22:47 | disposition home or self-care (01) ==
LOC: ER 19:39
DX: J98.01 Acute bronchospasm (principal); R07.9 Chest pain, unspecified; R06.02 Shortness of breath; F17.200 Nicotine dependence, unspecified, uncomplicated
CPT/HCPCS: 93005; 36415; 83735; 84703; 85025; 80048; 71046; 93010; J2930; J1885; J3475; J7620

== ENCOUNTER 2018-08-28 23:22 | Emergency (ER) | payer MEDICAID ==
--- NOTE | 2018-08-29 00:16 | EKG REPORT ---
SEVERITY:- NORMAL ECG - SINUS RHYTHM : Confirmed by: Xiao Baker 29-Aug-2018 00:15:48
[2018-08-29] MEDS ORDERED: IPRATROPIUM/ALBUTEROL 0.5-2.5 MG/3 ML AMPUL NEB ONE (01:11)
--- NOTE | 2018-08-29 01:15 | ER Document Report ---
ED Medical Screen (RME) - General Chief Complaint: Chest Pain Stated Complaint: CHEST PAIN Time Seen by Provider: 08/29/18 01:02 Primary Care Provider: JENNIFER MORALES FNP-C [Primary Care Provider] - Follow up as needed Notes: Patient is a 27-year-old female with a history of asthma who presents to the emergency department with a chief complaint of cough and chest pain. Patient states that 2 days ago she developed a sharp discomfort underneath her right breast that radiates to the middle of her chest. Patient states that it feels sharp in nature and worse with sleeping on her side or back, worse with twisting her body, worse with cough and deep breath. Patient states she attempted to use her child's inhaler, pro-air at home which did give her some relief. Patient states she has been out of her prescribed inhaler for months. Patient states she has been coughing up copious amounts of yellow mucus. Patient also reports lower abdominal cramping. Patient denies urinary symptoms. TRAVEL OUTSIDE OF THE [place] IN LAST 30 DAYS: No - Related Data Allergies/Adverse Reactions: onion Allergy (Uncoded 11/13/16 23:41) Past Medical History - Social History Chew tobacco use (# tins/day): No Frequency of alcohol use: Rare Drug Abuse: None Pulmonary Medical History: Reports: Hx Asthma Neurological Medical History: Reports: Hx Migraine Renal/ Medical History: Denies: Hx Peritoneal Dialysis Psychiatric Medical History: Reports: Hx Attention Deficit Hyperactivity Disorder, Hx Depression Past Surgical History: Reports: Hx Section - Immunizations Hx Diphtheria, Pertussis, Tetanus Vaccination: Yes Physical Exam - Vital signs Vitals: Temp Pulse Resp BP Pulse Ox 98.1 F 84 24 H 131/83 H 100 08/28/18 23:43 08/28/18 23:43 08/28/18 23:43 08/28/18 23:43 08/28/18 23:43 - Respiratory Respiratory status: No respiratory distress Chest status: Tender Breath sounds: Normal Chest palpation: Normal Course - Re-evaluation Re-evalutation: 08/29/18 01:14 I have greeted and performed a rapid initial assessment of this patient. A comprehensive ED assessment and evaluation of the patient, analysis of test results and completion of the medical decision making process will be conducted by additional ED providers. - Vital Signs Vital signs: Temp Pulse Resp BP Pulse Ox 98.1 F 84 24 H 131/83 H 100 08/28/18 23:43 08/28/18 23:43 08/28/18 23:43 08/28/18 23:43 08/28/18 23:43 Doctor's Discharge - Discharge Referrals: JENNIFER MORALES, CHEMICAL WORKER-C [Primary Care Provider] - Follow up as needed
[2018-08-29 01:32] LABS: APPEARANCE,URINE SLIGHTLY-CLOUDY; BILIRUBIN,URINE NEGATIVE (NEGATIVE); COLOR,URINE YELLOW; GLUCOSE, URINE NEGATIVE (NEGATIVE); KETONES,URINE NEGATIVE (NEGATIVE); LEUKOCYTE ESTERASE,URINE NEGATIVE (NEGATIVE); NITRITE,URINE NEGATIVE (NEGATIVE); PROTEIN,URINE NEGATIVE (NEGATIVE); URINE SPECIFIC GRAVITY 1.024
--- NOTE | 2018-08-29 02:03 | RADIOLOGY REPORT (SQ) ---
EXAM DESCRIPTION: XR CHEST 2 VIEWS COMPLETED DATE/TME: 08/29/2018 01:11 CLINICAL HISTORY: 27 years, Female, productive cough COMPARISON: 11/12/2016 NUMBER OF VIEWS: Two TECHNIQUE: Two views of the chest LIMITATIONS: None. FINDINGS: The lungs are clear. The heart is normal in size. There is no pneumothorax or pleural effusion. There is no acute fracture. IMPRESSION: No acute cardiopulmonary abnormality copyright 2010 [employer]- All Rights Reserved
[2018-08-29] MEDS ORDERED: PREDNISONE 20 MG TABLET PO ONE (02:36)
[2018-08-29] MEDS ORDERED: ALBUTEROL SULFATE HFA (90 MCG/PUFF) 8 GM MDI (1 MDI/ER DISP) IH ONE (02:36)
--- NOTE | 2018-08-29 02:42 | ER Document Report ---
ED General - General Chief Complaint: Chest Pain Stated Complaint: CHEST PAIN Time Seen by Provider: 08/29/18 01:02 Primary Care Provider: JENNIFER MROALES FNP-C [Primary Care Provider] - Follow up as needed Notes: Patient is a 27-year-old female with asthma that presents to the emergency department for chief complaint of chest pain and shortness of breath. Patient states that over the past few days she has been having chest pain that seems to be worse with lying on one side of the other on the side of her ribs, and her to take a deep breath along both sides of her sternum. She has had a mild cough and wheezing and tightness associated as well. She states she ran out of her albuterol inhaler, a few days ago, and has noticed more wheezing. She currently rates the pain as a 1 out of 10, but it is worse with taking a deep breath. Describes it as sharp in nature. She does smoke cigarettes, denies history of heart disease, or family history of early coronary disease, denies any recent prolonged travel, leg swelling, or calf tenderness or pain. Past Medical History: Asthma Past Surgical History: Ear surgery, Social History: Admits to smoking cigarettes, occasional alcohol use, denies ill icit drug use. Family History: Reviewed and noncontributory for presenting illness Allergies: Reviewed, see documented allergy list. REVIEW OF SYSTEMS: Other than noted above, the 12 point review of systems was reviewed with the patient and were negative, all pertinent findings are included in the HPI. PHYSICAL EXAMINATION: Vital signs reviewed, nursing noted reviewed. GENERAL: Well-appearing, well-nourished and in no acute distress. HEAD: Atraumatic, normocephalic. EYES: Eyes appear normal, extraocular movements intact, sclera anicteric, conjunctiva are normal. ENT: nares patent, oropharynx clear without exudates. Moist mucous membranes. NECK: Normal range of motion, supple without lymphadenopathy LUNGS: Mild expiratory wheezing noted on exam, no acute respiratory distress. M ild parasternal tenderness to palpation, reproducible. HEART: Regular rate and rhythm without murmurs ABDOMEN: Soft, nontender, normoactive bowel sounds. No rebound, guarding, or rigidity. No masses appreciated. EXTREMITIES: Nontender, good range of motion, no pitting or edema. NEUROLOGICAL: No focal neurological deficits. Moves all extremities spontaneously Motor and sensory grossly intact on exam. PSYCH: Normal mood, normal affect. SKIN: Warm, Dry, normal turgor, no rashes or lesions noted on exposed skin TRAVEL OUTSIDE OF THE [place] IN LAST 30 DAYS: No - Related Data Allergies/Adverse Reactions: onion Allergy (Uncoded 11/13/16 23:41) Past Medical History - Social History Smoking Status: Current Every Day Smoker Chew tobacco use (# tins/day): No Smoking Education Provided: Yes - 5 minutes of smoking cessation education provided to the patient today. Frequency of alcohol use: Rare Drug Abuse: None Family History: Reviewed & Not Pertinent Patient has suicidal ideation: No Patient has homicidal ideation: No Pulmonary Medical History: Reports: Hx Asthma Neurological Medical History: Reports: Hx Migraine Renal/ Medical History: Denies: Hx Peritoneal Dialysis Psychiatric Medical History: Reports: Hx Attention Deficit Hyperactivity Disorder, Hx Depression Past Surgical History: Reports: Hx Section - Immunizations Hx Diphtheria, Pertussis, Tetanus Vaccination: Yes Hx Pneumococcal Vaccination: 02/27/11 Physical Exam - Vital signs Vitals: Temp Pulse Resp BP Pulse Ox 98.1 F 84 24 H 131/83 H 100 08/28/18 23:43 08/28/18 23:43 08/28/18 23:43 08/28/18 23:43 08/28/18 23:43 Course - Re-evaluation Re-evalutation: Patient seen and examined vital signs reviewed. Laboratory data and/or imaging were ordered as appropriate for the patient's presenting symptoms and complaint, with consideration of any critical or life threatening conditions that may be associated with their obtained history and exam as noted above. Patient was treated with DuoNeb breathing treatment, and oral prednisone Results were reviewed when available and demonstrated negative chest x-ray, negative hCG, and UA unremarkable The patient was re-evaluated and was stable, and improved, EKG was unremarkable, patient ruled out for PE by PERC criteria, low suspicion, with reproducible chest wall tenderness, and asthma exacerbation, likely leading to the patient's cause of chest pain and tightness in her chest. Evaluation was most consistent with chest wall pain, mild asthma exacerbation, will dispense albuterol, and give the patient a prescription for prednisone, and advised to follow-up with her primary care. I also discussed with her smoking cessation, and she will discuss this with her primary care regarding these opt ions. Results were discussed with the patient at this point, after careful consideration I feel that that patient can be discharged from the emergency department, the patient was educated treatments and reasons to return to the emergency department based on their presumed diagnosis as noted above, they were advised to followup with a primary care physician in 2-3 days. Patient was agreeable to plan of care. *Note is created using voice recognition software and may contain spelling, syntax or grammatical errors. Laboratory 08/29/18 01:10 Urine Color YELLOW Urine Appearance SLIGHTLY-CLOUDY Urine pH 6.0 Ur Specific [place] 1.024 Urine Protein NEGATIVE Urine Glucose (UA) NEGATIVE Urine Ketones NEGATIVE Urine Blood NEGATIVE Urine Nitrite NEGATIVE Urine Bilirubin NEGATIVE Urine Urobilinogen 2.0 H Ur Leukocyte Esterase NEGATIVE Urine WBC (Auto) 0 Urine RBC (Auto) 0 Squamous Epi Cells Auto 2 Urine Mucus (Auto) RARE Urine Ascorbic Acid 40 H Urine HCG, Qual NEGATIVE Chest X-Ray 08/29/18 01:11 IMPRESSION: No acute cardiopulmonary abnormality copyright 2011 [employer]- All Rights Reserved - Vital Signs Vital signs: Temp Pulse Resp BP Pulse Ox 98.1 F 84 24 H 131/83 H 100 08/28/18 23:43 08/28/18 23:43 08/28/18 23:43 08/28/18 23:43 08/28/18 23:43 - Laboratory Laboratory results interpreted by me: 08/29/18 01:10 Urine Urobilinogen 2.0 H Urine Ascorbic Acid 40 H - EKG Interpretation by Me Additional EKG results interpreted by me: EKG demonstrates sinus rhythm with a ventricular rate of 86 bpm, normal axis, normal intervals, no evidence of acute ischemia in this EKG. Discharge - Discharge Clinical Impression: Asthma exacerbation Qualifiers: Asthma severity: unspecified severity Asthma persistence: unspecified Qualified Code(s): J45.901 - Unspecified asthma with (acute) exacerbation Chest pain Qualifiers: Chest pain type: unspecified Qualified Code(s): R07.9 - Chest pain, unspecified Condition: Stable Disposition: HOME, SELF-CARE Instructions: Asthma ([facility]), Costochondritis ([facility]) Additional Instructions: Please follow-up with your primary care physician, and use your new inhaler, 2 puffs every 4-6 hours if needed for wheezing and shortness of breath, and please complete the entire course of steroids as prescribed. Prescriptions: Prednisone [Deltasone 10 mg Tablet] 40 mg PO DAILY #16 tablet Forms: Smoking Cessation Education Referrals: JENNIFER MORALES, SANITARY ENGINEERING TEACHER-C [Primary Care Provider] - Follow up as needed
[2018-08-29 02:51] VITALS: BP 124/86
== END 2018-08-29 02:51 | disposition home or self-care (01) ==
LOC: ER 23:22
DX: J45.901 Unspecified asthma with (acute) exacerbation (principal); R07.89 Other chest pain; R06.02 Shortness of breath; R05 Cough; F17.210 Nicotine dependence, cigarettes, uncomplicated; Z71.6 Tobacco abuse counseling; Z91.018 Allergy to other foods
CPT/HCPCS: 93005; 99406; 94640; 99285; 81025; 81001; 71046; 93010; J7512; J3490; J7620

== ENCOUNTER 2018-09-14 23:07 | Emergency (ER) | payer MEDICAID ==
--- NOTE | 2018-09-15 03:02 | ER Document Report ---
ED General - General Chief Complaint: Abdominal Pain Stated Complaint: CHEST,BACK,STOMACH PAIN Time Seen by Provider: 09/15/18 02:47 Primary Care Provider: JENNIFER MORALES FNP-C [Primary Care Provider] - Follow up as needed TRAVEL OUTSIDE OF THE [place] IN LAST 30 DAYS: No - HPI Notes: Patient is a 28-year-old female who presents emergency department for evaluation of chest pain. She states she was seen here a few weeks ago for it. She states that her breathing seemed to get better with the inhaler, but overall the pain did not improve. She states she woke up tonight with severe pain so she presents to the ED. She states occasionally is sharp and stabbing. It seems to happen more frequently and she is laying down, but it can happen at any time. She denies any associated shortness of breath, nausea, diaphoresis, near syncope. She has not been coughing. She does have a history of frequent heartburn. Normal bowel movements. - Related Data Allergies/Adverse Reactions: onion Allergy (Uncoded 11/13/16 23:41) Past Medical History - General Information source: Patient - Social History Smoking Status: Current Every Day Smoker Family History: CAD, CVA, Hypertension Patient has suicidal ideation: No Patient has homicidal ideation: No Pulmonary Medical History: Reports: Hx Asthma Neurological Medical History: Reports: Hx Migraine Renal/ Medical History: Denies: Hx Peritoneal Dialysis Psychiatric Medical History: Reports: Hx Attention Deficit Hyperactivity Disorder, Hx Depression Past Surgical History: Reports: Hx Section - Immunizations Hx Diphtheria, Pertussis, Tetanus Vaccination: Yes Hx Pneumococcal Vaccination: 02/27/11 Review of Systems - Review of Systems Constitutional: No symptoms reported EENT: No symptoms reported Cardiovascular: See HPI Respiratory: No symptoms reported Gastrointestinal: See HPI Genitourinary: No symptoms reported Musculoskeletal: No symptoms reported Skin: No symptoms reported Neurological/Psychological: No symptoms reported Physical Exam - Vital signs Vitals: Temp Pulse Resp BP Pulse Ox 98.9 F 99 20 134/81 H 96 09/14/18 23:13 09/14/18 23:13 09/14/18 23:13 09/14/18 23:13 09/14/18 23:13 - Notes Notes: Vital signs reviewed, please refer to chart. Head is normocephalic, atraumatic. Pupils equal round, reactive to light. Neck is supple without meningismus. Heart is regular rate and rhythm. Lungs are clear to auscultation bilaterally. Abdomen is soft, nontender, normoactive bowel sounds throughout. Extremities without cyanosis, clubbing. Posterior calves are nontender. Peripheral pulses are equal. Skin is warm and dry. Patient is awake, alert, neurological exam is nonfocal. Patient is pleasant cooperative, disheveled. She does become tearful when discussing symptoms. Course - Re-evaluation Re-evalutation: 09/15/18 03:03 Patient presents emergency department for evaluation. Here, she is mildly hypertensive, but the remainder of her vital signs are unremarkable. She is oxygenating well and her lungs are clear. She had imaging and EKG performed at last visit which were unremarkable. We will repeat EKG. At this point, I do have a suspicion for some dyspepsia. Certainly, given her tearfulness, anxiety is a possible etiology as well. She has no risk factors for PE. I will then start the patient on Zantac. Her abdomen is nontender. Her vital signs are unremarkable. She has low probability for PE given PERC rule. Barring any abnormalities on EKG, at this point we will go ahead and send her home. She is to follow-up with primary care, return to the ED with worsening or new concerning symptoms of any sort. 09/15/18 03:05 - Vital Signs Vital signs: Temp Pulse Resp BP Pulse Ox 98.9 F 99 20 134/81 H 96 09/14/18 23:13 09/14/18 23:13 09/14/18 23:13 09/14/18 23:13 09/14/18 23:13 - EKG Interpretation by Me Additional EKG results interpreted by me: 09/15/18 03:27 Sinus mechanism with a rate of 84 bpm. Normal axis and intervals, no acute ST changes concerning for ischemia or infarction. Discharge - Discharge Clinical Impression: Dyspepsia Chest pain Qualifiers: Chest pain type: unspecified Qualified Code(s): R07.9 - Chest pain, unspecified Condition: Stable Disposition: HOME, SELF-CARE Instructions: Chest Pain of Unclear Cause ([facility]), Dyspepsia ([facility]) Additional Instructions: Take medication as prescribed. Try to avoid eating for 4 to 6 hours before bedtime. Follow-up with primary care in 1 to 2 weeks. Return to the emergency department with worsening or new concerning symptoms of any sort. Referrals: JENNIFER MORALES, REQUISITION APPROVER-C [Primary Care Provider] - Follow up as needed
[2018-09-15] MEDS ORDERED: FAMOTIDINE 20 MG TABLET PO ONE (03:51)
[2018-09-15 03:56] VITALS: BP 135/83
--- NOTE | 2018-09-15 10:08 | EKG REPORT ---
SEVERITY:- BORDERLINE ECG - SINUS RHYTHM : Confirmed by: Elmer Romeo MD 15-Sep-2018 10:07:48
== END 2018-09-15 03:56 | disposition home or self-care (01) ==
LOC: ER 23:07
DX: R07.9 Chest pain, unspecified (principal); R10.13 Epigastric pain; I10 Essential (primary) hypertension; J45.909 Unspecified asthma, uncomplicated; F17.200 Nicotine dependence, unspecified, uncomplicated; Z82.49 Family history of ischemic heart disease and other diseases of the circulatory system
CPT/HCPCS: 93005; 99284; 93010; J3490

== ENCOUNTER 2019-01-03 09:36 | Emergency (ER) | payer MEDICAID ==
[2019-01-03 09:59] VITALS: BP 129/87
[2019-01-03 10:20] LABS: BACTERIA (WET MOUNT) 4+ BACTERIA SEEN; RBCS (WET MOUNT) NO RBCS SEEN; T.VAGINALIS (WET MOUNT) NO TRICHOMONAS SEEN; WBCS (WET MOUNT) 1+ WBCS SEEN; YEAST (WET MOUNT) NO YEAST SEEN
[2019-01-03 10:21] LABS: EPITHELIALS (WET MOUNT) 4+ EPITHELIALS SEEN
[2019-01-03 10:29] LABS: APPEARANCE,URINE SLIGHTLY-CLOUDY; BILIRUBIN,URINE NEGATIVE (NEGATIVE); COLOR,URINE YELLOW; GLUCOSE, URINE NEGATIVE (NEGATIVE); KETONES,URINE NEGATIVE (NEGATIVE); LEUKOCYTE ESTERASE,URINE NEGATIVE (NEGATIVE); NITRITE,URINE NEGATIVE (NEGATIVE); PROTEIN,URINE NEGATIVE (NEGATIVE); URINE SPECIFIC GRAVITY 1.027
--- NOTE | 2019-01-03 11:15 | ER Document Report ---
HPI - HPI Pain Level: Denies Notes: .28-year-old female presents the ED for complaints of vaginal discharge and a "fishy discharge" after being sexually active approximately 2 days ago with the same partner she is been with for the last 6 years. Denies any [id number] medications. Patient states she does have a history of bacterial vaginosis. Patient reports she was using protection when sexually active. LMP approximately 2 days ago. Denies fevers, chills, chest pain,palpitations, shortness of breath, dyspnea, nausea, vomiting, diarrhea, abdominal pain, hematuria,blurred vision, LH, dizziness, , weakness, bowel or bladder dysfunction, saddle anesthesia, numbness or tingling in bilateral upper or lower extremities equally, muscle paralysis, weakness in bilateral upper or lower extremities equally or rash. - REPRODUCTIVE Reproductive: DENIES: : Past Medical History - General Information source: Patient - Social History Smoking Status: Current Every Day Smoker Chew tobacco use (# tins/day): No Frequency of alcohol use: None Drug Abuse: None Family History: CAD, CVA, Hypertension Patient has suicidal ideation: No Patient has homicidal ideation: No Pulmonary Medical History: Reports: Hx Asthma Neurological Medical History: Reports: Hx Migraine Renal/ Medical History: Denies: Hx Peritoneal Dialysis Psychiatric Medical History: Reports: Hx Attention Deficit Hyperactivity Disorder, Hx Depression Past Surgical History: Reports: Hx Section - Immunizations Hx Diphtheria, Pertussis, Tetanus Vaccination: Yes Hx Pneumococcal Vaccination: 02/27/11 Vertical Provider Document - CONSTITUTIONAL Agree With Documented VS: Yes Exam Limitations: No Limitations General Appearance: WD/WN Notes: PHYSICAL EXAMINATION: reviewed vital signs by RN GENERAL: Well-appearing, well-nourished and in no acute distress. HEAD: Atraumatic, normocephalic. EYES: Pupils equal round and reactive to light, extraocular movements intact, conjunctiva are normal. ENT: Nares patent, oropharynx clear without exudates. Moist mucous membranes. NECK: Normal range of motion, supple without lymphadenopathy LUNGS: Breath sounds clear to auscultation bilaterally and equal. No wheezes rales or rhonchi. HEART: Regular rate and rhythm without murmurs ABDOMEN: Soft, nontender, nondistended abdomen. No guarding, no rebound. No masses appreciated. Female : deferred, pt refused exam Musculoskeletal: Normal range of motion, no pitting or edema. No cyanosis. NEUROLOGICAL: Cranial nerves grossly intact. Normal speech, normal gait. Normal sensory, motor exams PSYCH: Normal mood, normal affect. SKIN: Warm, Dry, normal turgor, no rashes or lesions noted. - INFECTION CONTROL TRAVEL OUTSIDE OF THE [place] IN LAST 30 DAYS: No Course - Re-evaluation Re-evalutation: 01/03/19 11:14 Afebrile vital stable no distress. Nurse's notes reviewed. Wet mount did come back with bacterial vaginosis, no yeast. Urinalysis is normal. Advised to take Flagyl as directed with food, do not drink while taking medication bc it can cause nausea or vomiting. Follow-up with primary care provider as needed. After performing a Medical Screening Examination, I estimate there is LOW risk for ACUTE APPENDICITIS, BOWEL OBSTRUCTION, ACUTE CHOLECYSTITIS, PERFORATED DIVERTICULITIS, INCARCERATED HERNIA, PANCREATITIS, PELVIC INFLAMMATORY DISEASE, PERFORATED ULCER, ECTOPIC , or TUBO-OVARIAN ABSCESS, thus I consider the discharge disposition reasonable. Also, there is no evidence or peritonitis, sepsis, or toxicity. I have reevaluated this patient multiple times and no significant life threatening changes are noted. The patient and I have discussed the diagnosis and risks, and we agree with discharging home with close follow-up with the understanding that symptoms and presentations can change. We also discussed returning to the Emergency Department immediately if new or worsening symptoms occur. We have discussed the symptoms which are most concerning (e.g., bloody stool, fever, changing or worsening pain, vomiting) that necessitate immediate return. - Vital Signs Vital signs: Temp Pulse Resp BP Pulse Ox 97.7 F 83 18 129/87 H 100 01/03/19 09:57 01/03/19 09:57 01/03/19 09:57 01/03/19 09:57 01/03/19 09:57 - Laboratory Laboratory results interpreted by me: 01/03/19 10:06 Urine Urobilinogen 2.0 H Discharge - Discharge Clinical Impression: Bacterial vaginosis Condition: Stable Disposition: HOME, SELF-CARE Instructions: Vaginosis, Bacterial ([facility]) Additional Instructions: Antibiotic as directed with food. Patient to avoid after any sexual intercourse. Do not drink alcohol while taking Flagyl as it will cause nausea or vomiting. Follow-up with your primary care provider as needed. Return immediately for any new or worsening symptoms. Follow up with primary care provider, call tomorrow to make followup appointment. Prescriptions: Metronidazole [Flagyl] 500 mg PO BID #14 tablet Referrals: BRYSON RAZO MD [ACTIVE STAFF] - Follow up as needed
[2019-01-03 11:50] LABS: CHLAM PCR NOT DETECTED (NOT DETECT)
== END 2019-01-03 11:45 | disposition home or self-care (01) ==
LOC: ER 09:36
DX: N76.0 Acute vaginitis (principal); B96.89 Other specified bacterial agents as the cause of diseases classified elsewhere; J45.909 Unspecified asthma, uncomplicated; F17.200 Nicotine dependence, unspecified, uncomplicated
CPT/HCPCS: 81001; 81025; 87210; 87491; 87591; 99283

== ENCOUNTER 2019-03-17 14:37 | Emergency (ER) | payer MEDICAID ==
--- NOTE | 2019-03-17 15:18 | ER Document Report ---
ED Medical Screen (RME) - General Chief Complaint: Chest Pain Stated Complaint: COUGH,CONGESTION Time Seen by Provider: 03/17/19 15:11 TRAVEL OUTSIDE OF THE [place] IN LAST 30 DAYS: No - HPI Notes: 03/17/19 15:17 Patient is a 28-year-old female complaining of right-sided chest pain that is been present for about a week. Patient states that she will have an occasional dry cough, but the pain is routinely there. No fever. She is able to eat and drink without difficulty. She is urinating normally. No history of DVT, PE, CAD. I have treated and performed a rapid initial assessment of this patient. A comprehensive ED assessment and evaluation of the patient, analysis of test results and completion of medical decision making process will be conducted by additional ED providers. PHYSICAL EXAMINATION: GENERAL: Well-appearing, well-nourished and in no acute distress. A&Ox4. Answers questions appropriately. Heart: RRR Lungs: CTAB Extremities: Trace to 1+ pitting edema bilaterally. Chandni negative bilaterally. - Related Data Allergies/Adverse Reactions: onion Allergy (Uncoded 11/13/16 23:41) Home Medications: control Past Medical History Pulmonary Medical History: Reports: Hx Asthma Neurological Medical History: Reports: Hx Migraine Renal/ Medical History: Denies: Hx Peritoneal Dialysis Psychiatric Medical History: Reports: Hx Attention Deficit Hyperactivity Disorder, Hx Depression Past Surgical History: Reports: Hx Section - Immunizations Hx Diphtheria, Pertussis, Tetanus Vaccination: Yes Physical Exam - Vital signs Vitals: Temp Pulse Resp BP Pulse Ox 98.8 F 92 16 144/90 H 100 03/17/19 14:41 03/17/19 14:41 03/17/19 14:41 03/17/19 14:41 03/17/19 14:41 Course - Vital Signs Vital signs: Temp Pulse Resp BP Pulse Ox 98.8 F 92 16 144/90 H 100 03/17/19 14:41 03/17/19 14:41 03/17/19 14:41 03/17/19 14:41 03/17/19 14:41
[2019-03-17 15:57] LABS: ABSOLUTE EOSINOPHILS # (AUTO) 0.9 10^3/uL (0.0-0.6); ABSOLUTE LYMPHOCYTES (AUTO) 2.3 10^3/uL (0.5-4.7); ABSOLUTE MONOCYTES (AUTO) 0.6 10^3/uL (0.1-1.4); ABSOLUTE NEUT (AUTO) 5.9 10^3/uL (1.7-8.2); BASOPHILS % (AUTO) 0.4 % (0-2); EOSINOPHILS % (AUTO) 9.5 % (0-6); HEMATOCRIT 37.6 % (36.0-47.0); HEMOGLOBIN 12.6 g/dL (12.0-15.5); LYMPHOCYTES % (AUTO) 23.6 % (13-45); MEAN CORPUSCULAR HEMOGLOBIN 28.5 pg (27.0-33.4); MEAN CORPUSCULAR HGB CONC 33.5 g/dL (32.0-36.0); MEAN CORPUSCULAR VOLUME 85 fl (80-97); MONOCYTES % (AUTO) 6.5 % (3-13); PLATELET COUNT 341 10^3/uL (150-450); RED BLOOD COUNT 4.42 10^6/uL (3.72-5.28); RED CELL DISTRIBUTION WIDTH 13.3 % (11.5-14.0); TOTAL CELLS COUNTED % (AUTO) 100 %; WHITE BLOOD COUNT 9.9 10^3/uL (4.0-10.5)
[2019-03-17 16:10] LABS: ALKALINE PHOSPHATASE 68 U/L (38-126); ASPARTATE AMINO TRANSFERASE 18 U/L (14-36); BILIRUBIN,TOTAL 0.3 mg/dL (0.2-1.3); BLOOD UREA NITROGEN 11 mg/dL (7-20); CALCIUM 8.8 mg/dL (8.4-10.2); CARBON DIOXIDE 27 mmol/L (22-30); CHLORIDE 107 mmol/L (98-107); POTASSIUM 4.3 mmol/L (3.6-5.0); TOTAL PROTEIN 5.7 g/dL (6.3-8.2)
[2019-03-17 16:12] LABS: GLUCOSE 68 mg/dL (75-110)
[2019-03-17 16:17] LABS: ANION GAP 4 (5-19); APPEARANCE,URINE CLEAR; BILIRUBIN,URINE NEGATIVE (NEGATIVE); COLOR,URINE YELLOW; GLUCOSE, URINE NEGATIVE (NEGATIVE); KETONES,URINE NEGATIVE (NEGATIVE); PROTEIN,URINE NEGATIVE (NEGATIVE); URINE SPECIFIC GRAVITY 1.016
--- NOTE | 2019-03-17 16:39 | RADIOLOGY REPORT (SQ) ---
EXAM DESCRIPTION: CHEST 2 VIEWS COMPLETED DATE/TIME: 03/17/2019 4:02 pm REASON FOR STUDY: CP COMPARISON: 08/29/2018 TECHNIQUE: Frontal and lateral radiographic views of the chest acquired. NUMBER OF VIEWS: Two view. LIMITATIONS: None. FINDINGS: LUNGS AND PLEURA: No pneumothorax. No consolidation. Right pleural thickening- effusion. MEDIASTINUM AND HILAR STRUCTURES: Stable. HEART AND VASCULAR STRUCTURES: Stable. BONES: No acute findings. HARDWARE: None in the chest. OTHER: No other significant finding. IMPRESSION: No consolidation. Right pleural thickening- effusion. TECHNICAL DOCUMENTATION: JOB ID: [id number] [id number] 2010 [employer]- All Rights Reserved Reading location - IP/workstation name: [employer]
[2019-03-17] MEDS ORDERED: PREDNISONE 20 MG TABLET PO ONE (17:20)
[2019-03-17] MEDS ORDERED: IPRATROPIUM/ALBUTEROL 0.5-2.5 MG/3 ML AMPUL NEB ONE (17:20)
[2019-03-17] MEDS ORDERED: ALBUTEROL SULFATE HFA (90 MCG/PUFF) 8 GM MDI (1 MDI/ER DISP) IH ONE (18:17)
[2019-03-17] MEDS ORDERED: ACETAMINOPHEN WITH CODEINE #3 TABLET PO ONE (18:17)
[2019-03-17 18:23] VITALS: BP 132/80
--- NOTE | 2019-03-17 18:30 | EKG REPORT ---
SEVERITY:- BORDERLINE ECG - SINUS RHYTHM PROBABLE LEFT ATRIAL ABNORMALITY : Confirmed by: Madison Steele MD 17-Mar-2019 18:29:49
--- NOTE | 2019-03-17 18:35 | ER Document Report ---
ED Respiratory Problem - General Chief Complaint: Chest Pain Stated Complaint: COUGH,CONGESTION Time Seen by Provider: 03/17/19 15:11 Primary Care Provider: AXEL VALLES MD [Primary Care Provider] - Follow up as needed Notes: Patient is a 28-year-old female with a history of asthma who smokes. She has had cough and congestion for the last week but states that chest is tight and cough is more painful today. Denies any cardiac history. Has not taken anything at home for this. Does not have an albuterol inhaler at home. TRAVEL OUTSIDE OF THE [place] IN LAST 30 DAYS: No - HPI Patient complains to provider of: Cough Associated symptoms: denies: Chills, Fever - Related Data Allergies/Adverse Reactions: onion Allergy (Uncoded 11/13/16 23:41) Home Medications: control Past Medical History - General Information source: Patient - Social History Smoking Status: Current Every Day Smoker Family History: CAD, CVA, Hypertension Patient has suicidal ideation: No Patient has homicidal ideation: No Pulmonary Medical History: Reports: Hx Asthma Neurological Medical History: Reports: Hx Migraine Renal/ Medical History: Denies: Hx Peritoneal Dialysis Psychiatric Medical History: Reports: Hx Attention Deficit Hyperactivity Disorder, Hx Depression Past Surgical History: Reports: Hx Section - Immunizations Hx Diphtheria, Pertussis, Tetanus Vaccination: Yes Hx Pneumococcal Vaccination: 02/27/11 Review of Systems - Review of Systems -: Yes All other systems reviewed and negative Physical Exam - Vital signs Vitals: Temp Pulse Resp BP Pulse Ox 98.8 F 92 16 144/90 H 100 03/17/19 14:41 03/17/19 14:41 03/17/19 14:41 03/17/19 14:41 03/17/19 14:41 Interpretation: Normal - General General appearance: Appears well, Alert - HEENT Head: Normocephalic, Atraumatic Eyes: Normal Pupils: PERRL - Respiratory Respiratory status: No respiratory distress Chest status: Nontender Breath sounds: Wheezing Chest palpation: Normal - Cardiovascular Rhythm: Regular Heart sounds: Normal auscultation Murmur: No - Abdominal Inspection: Normal Distension: No distension Bowel sounds: Normal Tenderness: Nontender Organomegaly: No organomegaly - Back Back: Normal, Nontender - Extremities General upper extremity: Normal inspection, Nontender, Normal color, Normal ROM, Normal temperature General lower extremity: Normal inspection, Nontender, Normal color, Normal ROM, Normal temperature, Normal weight bearing. No: Chandni's sign - Neurological Neuro grossly intact: Yes Cognition: Normal Orientation: AAOx4 Raphael Coma Scale Eye Opening: Spontaneous Raphael Coma Scale Verbal: Oriented [place] Coma Scale Motor: Obeys Commands [place] Coma Scale Total: 15 Speech: Normal Motor strength normal: LUE, RUE, LLE, RLE Sensory: Normal - Psychological Associated symptoms: Normal affect, Normal mood - Skin Skin Temperature: Warm Skin Moisture: Dry Skin Color: Normal Course - Re-evaluation Re-evalutation: 03/17/19 18:32 Improved with nebulizer treatment. Will be given prednisone and albuterol. Follow-up with PMD. Return if further concerns. No acute findings on blood work or x-ray. - Vital Signs Vital signs: Temp Pulse Resp BP Pulse Ox 98.7 F 73 16 132/80 H 99 03/17/19 18:22 03/17/19 18:22 03/17/19 18:22 03/17/19 18:22 03/17/19 18:22 - Laboratory Result Diagrams: 03/17/19 15:28 03/17/19 15:28 Laboratory results interpreted by me: 03/17/19 03/17/19 03/17/19 15:28 15:28 15:28 Eos % (Auto) 9.5 H Absolute Eos (auto) 0.9 H Anion Gap 4 L Glucose 68 L POC Glucose Total Protein 5.7 L Albumin 3.0 L Urine Urobilinogen 4.0 H 03/17/19 17:14 Eos % (Auto) Absolute Eos (auto) Anion Gap Glucose POC Glucose 112 H Total Protein Albumin Urine Urobilinogen - Diagnostic Test Radiology reviewed: Reports reviewed Discharge - Discharge Clinical Impression: Bronchospasm with bronchitis, acute Condition: Stable Disposition: HOME, SELF-CARE Instructions: Bronchitis With Bronchospasm (Wheezing) ([facility]) Prescriptions: Acetaminophen with Codeine [Tylenol #3 Tablet] 1 each PO QHS #3 tablet Prednisone [Deltasone 20 mg Tablet] 2 tab PO DAILY 4 Days #8 tablet Albuterol Sulfate [Proair HFA Inhalation Aerosol 8.5 gm MDI] 2 puff IH Q4H PRN #1 mdi PRN Reason: Forms: Smoking Cessation Education, Return to Work Referrals: AXEL VALLES MD [Primary Care Provider] - Follow up as needed
== END 2019-03-17 18:41 | disposition home or self-care (01) ==
LOC: ER 14:37
DX: J20.9 Acute bronchitis, unspecified (principal); J45.909 Unspecified asthma, uncomplicated; R05 Cough; R07.89 Other chest pain; F17.200 Nicotine dependence, unspecified, uncomplicated; Z91.018 Allergy to other foods; Z79.3 Long term (current) use of hormonal contraceptives
CPT/HCPCS: 93005; 94640; 99283; 36415; 82962; 85025; 81025; 80053; 81001; 84484; 71046; 93010; J7512; J3490; J7620

== ENCOUNTER 2019-08-30 00:10 | Emergency (ER) | payer MEDICAID ==
[2019-08-30] MEDS ORDERED: IPRATROPIUM/ALBUTEROL 0.5-2.5 MG/3 ML AMPUL NEB ONE (01:27)
[2019-08-30] MEDS ORDERED: PREDNISONE 20 MG TABLET PO ONE (01:27)
[2019-08-30] MEDS: ALBUTEROL SULFATE 0.083% NEB 2.5 MG/3 ML AMPUL NEB SCH ×2 (01:41→02:21)
--- NOTE | 2019-08-30 02:16 | RADIOLOGY REPORT (SQ) ---
CLINICAL INDICATION: shortness of breath, chest tightness. TECHNIQUE: PA and lateral views were obtained of the chest COMPARISON: March 17, 2019. FINDINGS: The cardiomediastinal silhouette is prominent but stable. The lungs are grossly clear. No evidence of effusion or pneumothorax. Visualized bones are unremarkable. . IMPRESSION: No evidence of active intrathoracic disease .
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
[2019-08-30 05:08] VITALS: BP 115/79
== END 2019-08-30 05:05 | disposition home or self-care (01) ==
LOC: ER 00:10
DX: J45.41 Moderate persistent asthma with (acute) exacerbation (principal); Z91.018 Allergy to other foods
CPT/HCPCS: 94640 ×2; 99284; 71046; J7512; J7620

== ENCOUNTER 2019-08-30 23:44 | Observation (INO) | payer MEDICAID ==
[2019-08-31] MEDS ORDERED: IPRATROPIUM/ALBUTEROL 0.5-2.5 MG/3 ML AMPUL NEB ONE (00:27)
[2019-08-31] MEDS ORDERED: PREDNISONE 20 MG TABLET PO ONE (00:27)
[2019-08-31] MEDS: ALBUTEROL SULFATE 0.083% NEB 2.5 MG/3 ML AMPUL NEB SCH ×2 (00:34→01:45)
--- NOTE | 2019-08-31 00:43 | RADIOLOGY REPORT (SQ) ---
EXAM DESCRIPTION: [facility]: XR CHEST 1 VIEW CLINICAL HISTORY: 28 years Female; shortness of breath; COMPARISON: 11/12/2016 FINDINGS: Lungs: Lungs are clear, with no focal infiltrate, pneumothorax, or pleural effusion. Mediastinum: Mediastinum is within normal limits for this positioning. Bones: Bony structures are unremarkable. IMPRESSION: 1. No acute pulmonary findings.
--- NOTE | 2019-08-31 02:58 | ER Document Report ---
ED General - General Chief Complaint: Asthma Exacerbation Stated Complaint: SHORTNESS OF BREATH Time Seen by Provider: 08/31/19 02:38 Mode of Arrival: Ambulatory Information source: Patient Notes: Patient is a 28-year-old female presents emergency department chief complaint of shortness of breath. Patient reports she has a history of asthma, she states she ran out of her asthma medication and was seen here in this emergency department 24 hours ago. She states that gave her breathing treatments and started her on prednisone however through the day her shortness of breath is worsened and she now has sharp stabbing chest pain. She states she cannot even walk across her house to use the bathroom without becoming so short of breath she has to sit down. She states she has never had shortness of breath like this before. She denies history of any pulmonary embolisms. She is on oral c ontraceptives, she is a smoker, she denies any recent travel. TRAVEL OUTSIDE OF THE [place] IN LAST 30 DAYS: No - Related Data Allergies/Adverse Reactions: onion Allergy (Uncoded 11/13/16 23:41) Past Medical History - General Information source: Patient - Social History Smoking Status: Current Every Day Smoker Frequency of alcohol use: None Drug Abuse: None Family History: CAD, CVA, Hypertension Pulmonary Medical History: Reports: Hx Asthma Neurological Medical History: Reports: Hx Migraine Renal/ Medical History: Denies: Hx Peritoneal Dialysis Psychiatric Medical History: Reports: Hx Attention Deficit Hyperactivity Disorder, Hx Depression Past Surgical History: Reports: Hx Section - Immunizations Hx Diphtheria, Pertussis, Tetanus Vaccination: Yes Hx Pneumococcal Vaccination: 02/27/11 Review of Systems - Review of Systems Constitutional: denies: Chills, Fever Cardiovascular: Chest pain Respiratory: Hurts to breathe, Short of breath - severe Gastrointestinal: No symptoms reported Genitourinary: No symptoms reported Female Genitourinary: No symptoms reported Musculoskeletal: No symptoms reported Skin: No symptoms reported Hematologic/Lymphatic: No symptoms reported Neurological/Psychological: No symptoms reported Physical Exam - Vital signs Vitals: Temp Resp BP 98.7 F 24 H 117/77 08/31/19 00:02 08/31/19 00:02 08/31/19 00:02 - Notes Notes: PHYSICAL EXAMINATION: GENERAL: Tachycardic, tachypneic, sitting up in the stretcher and appears to be in moderate distress.. HEAD: Atraumatic, normocephalic. EYES: Pupils equal round and reactive to light, extraocular movements intact, conjunctiva are normal. ENT: Nares patent, oropharynx clear without exudates. Moist mucous membranes. NECK: Normal range of motion, supple without lymphadenopathy LUNGS: Breath sounds clear to auscultation bilaterally and equal. No wheezes rales or rhonchi. Increased work of breathing, tachypnea. HEART: Tachycardic ABDOMEN: Soft, nontender, nondistended abdomen. No guarding, no rebound. No masses appreciated. Female : deferred Musculoskeletal: Normal range of motion, no pitting or edema. No cyanosis. NEUROLOGICAL: Cranial nerves grossly intact. Normal speech, normal gait. Normal sensory, motor exams PSYCH: Normal mood, normal affect. SKIN: Warm, Dry, normal turgor, no rashes or lesions noted. Course - Re-evaluation Re-evalutation: 08/31/19 02:56 At the time of my initial evaluation patient is tachycardic to the 120s, she is tachypneic with a respiratory rate in the 30s and she is hypoxic with an O2 sat of 92%. Her lungs are clear and equal bilaterally. This is highly suspect for a pulmonary emboli. Patient will be sent for a CTA. I placed the patient on 2 L of oxygen which did increase her O2 saturations to 96%. Chest X-Ray 08/31/19 00:00 IMPRESSION: 1. No acute pulmonary findings. Chest/Abdomen CTA 08/31/19 02:52 IMPRESSION: Bilateral pulmonary emboli. This is significant thrombus burden. There is evidence of right heart strain. These findings were discussed personally by phone with, and an understanding was acknowledged by, Dr. Miller on 08/31/2019 2:38 AM CDT. . Patient CTA shows bilateral pulmonary emboli with rhombus burden and evidence of strain on the right side of the heart. I called and spoke with the hospitalist who agreed to accept the patient for admission. Lovenox orders placed per their recommendation/preference. Patient updated on plan of care. Patient very anxious about her diagnosis, she is very tearful. Reassurance given. Nurse at the bedside giving constant reassurance. - Vital Signs Vital signs: Temp Pulse Resp BP Pulse Ox 97.3 F 109 H 23 H 116/87 H 100 08/31/19 05:58 08/31/19 05:58 08/31/19 05:58 08/31/19 05:58 08/31/19 05:58 - Laboratory Result Diagrams: 08/31/19 03:04 08/31/19 03:04 Laboratory results interpreted by me: 08/31/19 08/31/19 03:04 03:04 WBC 12.1 H Absolute Neuts (auto) 9.2 H Chloride 109 H Carbon Dioxide 21 L Glucose 147 H AST 100 H ALT 103 H Discharge - Discharge Clinical Impression: Bilateral pulmonary embolism Condition: Stable Disposition: ADMITTED INPATIENT Admitting Provider: Maxx (Hospitalist)
[2019-08-31 03:14] LABS: ABSOLUTE BASOPHILS # (AUTO) 0.1 10^3/uL (0.0-0.2); ABSOLUTE LYMPHOCYTES (AUTO) 1.9 10^3/uL (0.5-4.7); ABSOLUTE MONOCYTES (AUTO) 0.9 10^3/uL (0.1-1.4); ABSOLUTE NEUT (AUTO) 9.2 10^3/uL (1.7-8.2); BASOPHILS % (AUTO) 0.4 % (0-2); HEMATOCRIT 39.4 % (36.0-47.0); HEMOGLOBIN 13.1 g/dL (12.0-15.5); LYMPHOCYTES % (AUTO) 15.7 % (13-45); MEAN CORPUSCULAR HEMOGLOBIN 27.8 pg (27.0-33.4); MEAN CORPUSCULAR HGB CONC 33.2 g/dL (32.0-36.0); MEAN CORPUSCULAR VOLUME 84 fl (80-97); MONOCYTES % (AUTO) 7.3 % (3-13); PLATELET COUNT 359 10^3/uL (150-450); RED BLOOD COUNT 4.71 10^6/uL (3.72-5.28); RED CELL DISTRIBUTION WIDTH 13.6 % (11.5-14.0); SEGMENTED NEUTROPHILS % (AUTO) 76.6 % (42-78); TOTAL CELLS COUNTED % (AUTO) 100 %; WHITE BLOOD COUNT 12.1 10^3/uL (4.0-10.5)
[2019-08-31 03:19] LABS: INTERNATIONAL RATION (INR) 1.18; PROTHROMBIN TIME 15.1 SEC (11.4-15.4)
[2019-08-31 03:36] LABS: ALBUMIN 3.6 g/dL (3.5-5.0); ALKALINE PHOSPHATASE 76 U/L (38-126); ANION GAP 8 (5-19); ASPARTATE AMINO TRANSFERASE 100 U/L (14-36); BILIRUBIN,TOTAL 0.6 mg/dL (0.2-1.3); BLOOD UREA NITROGEN 14 mg/dL (7-20); CALCIUM 9.1 mg/dL (8.4-10.2); CARBON DIOXIDE 21 mmol/L (22-30); CHLORIDE 109 mmol/L (98-107); GLUCOSE 147 mg/dL (75-110); POTASSIUM 4.8 mmol/L (3.6-5.0); TOTAL PROTEIN 6.5 g/dL (6.3-8.2)
--- NOTE | 2019-08-31 03:40 | RADIOLOGY REPORT (SQ) ---
CLINICAL INDICATION: cp/sob/tachycardia, eval for PE. . TECHNIQUE: CT arteriography was obtained of the chest with multiplanar MIP and/or 3-D angiographic reconstructions. This exam was performed according to our departmental dose-optimization program, which includes automated exposure control, adjustment of the mA and/or kV according to patient size and/or use of iterative reconstruction techniques. COMPARISON: November 14, 2016. CORRELATION: None. FINDINGS: Adequate contrast bolus. Average Hounsfield unit measurement within main pulmonary artery segment of 347. Artifact from venous opacification. There is evidence of central bilateral pulmonary emboli. These extending from main pulmonary arteries into all lobes. This is significant thrombus burden. There is evidence of right heart strain.. Thoracic aorta is of normal caliber. The heart is prominent. No pericardial effusion. No bulky mediastinal adenopathy. Thymus in the anterior mediastinum The lungs are grossly clear. No consolidation or edema. No effusion or pneumothorax. Subtle patchy areas of interstitial prominence. Aeration is improved when compared to prior Visualized abdominal contents are unremarkable. Visualized bones are unremarkable. IMPRESSION: Bilateral pulmonary emboli. This is significant thrombus burden. There is evidence of right heart strain. These findings were discussed personally by phone with, and an understanding was acknowledged by, Dr. Miller on 08/31/2019 2:38 AM CDT. .
[2019-08-31] MEDS ORDERED: MORPHINE SULFATE 10 MG/ML INJ IV ONE (04:01)
[2019-08-31] MEDS ORDERED: PROMETHAZINE HCL INJ 25 MG/1 ML VIAL IV PRN (04:13)
[2019-08-31] MEDS: ENOXAPARIN SODIUM INJ 120 MG/0.8 ML DISP.SYRIN SUBCUT SCH ×2 (04:13→10:05)
[2019-08-31] MEDS ORDERED: ONDANSETRON HCL INJ/PF 4 MG/2 ML SDV IV PRN (04:13)
[2019-08-31] MEDS ORDERED: MAGNESIUM HYDROXIDE SUSP 30 ML UDCUP PO PRN (04:13)
[2019-08-31] MEDS ORDERED: ACETAMINOPHEN 325 MG TABLET PO PRN (04:13)
[2019-08-31] MEDS ORDERED: OXYCODONE-ACETAMINOPHEN 5-325 MG TABLET PO PRN (04:13)
[2019-08-31] MEDS ORDERED: TEMAZEPAM 15 MG CAPSULE PO PRN (04:13)
[2019-08-31] MEDS ORDERED: HYDRALAZINE HCL INJ/PF 20 MG/1 ML SDV IV PRN (04:19)
[2019-08-31] MEDS ORDERED: METOPROLOL TARTRATE PF/INJ 5 MG/5 ML SDV IV PRN (04:19)
[2019-08-31] MEDS ORDERED: NICOTINE 7 MG/24 HR PATCH.TD24 TD ONE (04:30)
--- NOTE | 2019-08-31 04:30 | PDOC H&P ---
History of Present Illness Admission Date/PCP: AXEL VALLES MD History of Present Illness: ELYSIA RDZ is a 28 year old female past medical history of ADHD, asthma, tobacco abuse, obesity, presenting to ED complaining of acute onset shortness of breath associated with pleuritic chest pain. Patient had presented to ED 24 hours prior to admission was diagnosed with asthma exacerbation and since home. Patient presented back to ED stating that her shortness of breath is gotten worse to the point that she cannot ambulate across her room without sitting down. Patient is a current smoker and is on oral contraceptives for the last 4 years otherwise she denies any recent trauma, recent hospitalization, recent immobilization, recent travel, any previous history of PE or DVT, any lower extremity or joint swelling, or any history of malignancy. She denies any cough, fever, nausea, chills, diarrhea, abdominal pain, constipation, urinary symptoms, In ED chest showed bilateral pulmonary emboli. Past Medical History Pulmonary Medical History: Reports: Asthma Neurological Medical History: Reports: Migraine Psychiatric Medical History: Reports: Attention Deficit Hyperactivity Disorder, Depression Past Surgical History Past Surgical History: Reports: Section Social History Smoking Status: Unknown if Ever Smoked Family History Family History: CAD, CVA, Hypertension Parental Family History Reviewed: Yes Children Family History Reviewed: Yes Sibling(s) Family History Reviewed.: Yes Medication/Allergy Home Medications: No.137/Iron/Folic Acd [ Vitamin Tablet] 1 tab PO DAILY 11/10/13 Albuterol Sulfate [Proair HFA Inhalation Aerosol 8.5 gm MDI] 2 inh PO PRN PRN 01/19/14 Ibuprofen [Motrin 800 mg Tablet] 800 mg PO Q8 #30 tablet 08/26/15 Metronidazole [Flagyl 500 mg Tablet] 500 mg PO BID #14 tablet 03/11/16 Hydrocortisone [Proctozone-Hc] 30 gm RC BIDP PRN #30 cream.gm. 05/09/16 Ibuprofen [Motrin 800 mg Tablet] 800 mg PO TID #30 tablet 11/12/16 Azithromycin [Zithromax 250 mg Tablet] 250 mg PO ASDIR PRN #6 tablet 11/14/16 Oxycodone HCl/Acetaminophen [Percocet 5-325 mg Tablet] 1 - 2 tab PO ASDIR PRN #15 tablet 11/14/16 Albuterol Sulfate [Ventolin HFA MDI 18 GM] 1 - 2 puff IH Q4H PRN #1 mdi 12/16/17 Ibuprofen [Motrin 800 mg Tablet] 800 mg PO Q8H PRN 7 Days #21 tab 12/16/17 Prednisone 60 mg PO DAILY 4 Days #12 tablet 12/16/17 Prednisone [Deltasone 10 mg Tablet] 40 mg PO DAILY #16 tablet 08/29/18 Ranitidine HCl [Zantac] 150 mg PO BID #30 tablet 09/15/18 Metronidazole [Flagyl] 500 mg PO BID #14 tablet 01/03/19 Acetaminophen with Codeine [Tylenol #3 Tablet] 1 each PO QHS #3 tablet 03/17/19 Albuterol Sulfate [Proair HFA Inhalation Aerosol 8.5 gm MDI] 2 puff IH Q4H PRN #1 mdi 03/17/19 Prednisone [Deltasone 20 mg Tablet] 2 tab PO DAILY 4 Days #8 tablet 03/17/19 Albuterol Sulfate [Proair HFA Inhalation Aerosol 8.5 gm MDI] 2 puff IH Q4H PRN #1 mdi 08/30/19 Prednisone [Deltasone 20 mg Tablet] 3 tab PO DAILY 4 Days #12 tablet 08/30/19 Allergies/Adverse Reactions: onion Allergy (Uncoded 11/13/16 23:41) Review of Systems Review of Systems: as per hpi Physical Exam Vital Signs: Temp Pulse Resp BP Pulse Ox 98.7 F 134 H 23 H 110/87 H 96 08/31/19 00:03 08/31/19 00:03 08/31/19 03:01 08/31/19 03:01 08/31/19 03:01 Intake & Output 08/29/19 08/30/19 08/31/19 06:59 06:59 06:59 Weight 103.2 kg General appearance: PRESENT: no acute distress, obese, well-developed, well- nourished Head exam: PRESENT: atraumatic, normocephalic Respiratory exam: PRESENT: clear to auscultation magali, prolonged expiratory phas, tachypnea. ABSENT: rales, rhonchi, wheezes Cardiovascular exam: PRESENT: RRR, tachycardia. ABSENT: diastolic murmur, rubs, systolic murmur Pulses: PRESENT: normal dorsalis pedis pul GI/Abdominal exam: PRESENT: normal bowel sounds, soft. ABSENT: distended, guarding, mass, organolmegaly, rebound, tenderness Extremities exam: PRESENT: full ROM. ABSENT: calf tenderness, clubbing, pedal edema Neurological exam: PRESENT: alert, awake, oriented to person, oriented to place, oriented to time, oriented to situation, CN II-XII grossly intact. ABSENT: motor sensory deficit Skin exam: PRESENT: dry, intact, warm. ABSENT: cyanosis, rash Results Laboratory Results: 08/31/19 03:04 08/31/19 03:04 08/31/19 08/31/19 08/31/19 03:04 03:04 03:04 WBC 12.1 H RBC 4.71 Hgb 13.1 Hct 39.4 MCV 84 MCH 27.8 MCHC 33.2 RDW 13.6 Plt Count 359 Seg Neutrophils % 76.6 Sodium 137.6 Potassium 4.8 Chloride 109 H Carbon Dioxide 21 L Anion Gap 8 BUN 14 Creatinine 1.02 Est GFR ( Amer) > 60 Glucose 147 H Calcium 9.1 Total Bilirubin 0.6 AST 100 H Alkaline Phosphatase 76 Total Protein 6.5 Albumin 3.6 Serum HCG, Qual NEGATIVE Impressions: Chest X-Ray 08/31/19 00:00 IMPRESSION: 1. No acute pulmonary findings. Chest/Abdomen CTA 08/31/19 02:52 IMPRESSION: Bilateral pulmonary emboli. This is significant thrombus burden. There is evidence of right heart strain. These findings were discussed personally by phone with, and an understanding was acknowledged by, Dr. Miller on 08/31/2019 2:38 AM CDT. . Assessment and Plan - Diagnosis (1) Bilateral pulmonary embolism Is this a current diagnosis for this admission?: Yes Plan: Provoked bilateral pulmonary emboli. Likely due to oral contraceptives complicated by ongoing tobacco abuse. CTA chest positive for bilateral pulmonary emboli. Significant thrombus burden. Evidence of right heart strain. Admit to telemetry, monitor vitals. Therapeutic Lovenox to be transitioned to NOACs. (2) Asthma exacerbation Qualifiers: Asthma severity: moderate Asthma persistence: persistent Qualified C ode(s): J45.41 - Moderate persistent asthma with (acute) exacerbation Is this a current diagnosis for this admission?: Yes Plan: History of moderate persistent asthma. DuoNebs, supplemental oxygen, incentive spirometry, LABA, LABA, ICS. Outpatient PCP and pulmonology follow-up. (3) Tobacco abuse Is this a current diagnosis for this admission?: Yes Plan: Extensive counseling on quitting. Nicotine patch will be provided. (4) Obesity (BMI 30.0-34.9) Is this a current diagnosis for this admission?: Yes Plan: BMI 35.6. Will obtain TSH. Diet and lifestyle modification recommended. (5) Depression Is this a current diagnosis for this admission?: Yes Plan: Denies any homicidal or suicidal ideation. Resume home meds. Outpatient PCP follow-up. (6) Chest pain Qualifiers: Chest pain type: chest pain on breathing Qualified Code(s): R07.1 - Chest pain on breathing; R07.81 - Pleurodynia Is this a current diagnosis for this admission?: Yes Plan: Pleuritic chest pain. Unlikely cardiac in origin. Likely due to bilateral PE complicated by asthma exacerbation We will obtain troponins and EKG. if positive will start on antiplatelets, statins and consult cardiology.
[2019-08-31] MEDS ORDERED: NICOTINE 7 MG/24 HR PATCH.TD24 ONE (05:16)
[2019-08-31] MEDS: METHYLPREDNISOLONE INJ 40 MG/1 ML SDV IV SCH ×2 (06:27→13:53)
[2019-08-31] MEDS: IPRATROPIUM/ALBUTEROL 0.5-2.5 MG/3 ML AMPUL NEB SCH ×2 (08:30→13:37)
[2019-08-31] MEDS ORDERED: FLUTICASONE/VILANTEROL 200-25 MCG/DOSE IH SCH (10:00)
[2019-08-31] MEDS ORDERED: FAMOTIDINE 20 MG TABLET PO SCH (10:00)
--- NOTE | 2019-08-31 12:04 | EKG REPORT ---
SEVERITY:- ABNORMAL ECG - SINUS TACHYCARDIA ABNORMAL T, PROBABLE ISCHEMIA, INFERIOR LEADS : Confirmed by: Madison Steele MD 31-Aug-2019 12:03:37
--- NOTE | 2019-08-31 12:04 | EKG REPORT ---
SEVERITY:- ABNORMAL ECG - SINUS TACHYCARDIA ABNORMAL T, PROBABLE ISCHEMIA, INFERIOR LEADS BORDERLINE PROLONGED QT INTERVAL : Confirmed by: Madison Steele MD 31-Aug-2019 12:03:28
--- NOTE | 2019-08-31 12:06 | XCELERA REPORT ---
[address] [address] Transthoracic Echocardiogram Report Name: ELYSIA RDZ Age: 28 yrs Gender: Female : 1990 Patient Status: Inpatient Patient Location: [facility]^A Study Date: 08/31/2019 08:02 AM History: ELSI Height: 67 in Weight: 227 lb BSA: 2.1 m2 Reason For Study: PE; Rt heart strain by CT EKG History: PE. Ordering Physician: DC BURNETT Performed By: Mary Raza Interpretation Summary Left ventricular systolic function is low normal. The Ejection Fraction estimate is 50-55% Flattened septum is consistent with RV pressure/volume overload The right ventricle is severely dilated. The right ventricular systolic function is moderate to severely reduced. There is a trace amount of mitral regurgitation There is no aortic valve stenosis There is a moderate amount of tricuspid regurgitation There is servere pulmonary hypertension by echo Minimal pericardial effusion. MMode/2D Measurements & Calculations RVDd: 2.6 cm LVIDd: 3.8 cm FS: 22.3 % Ao root diam: 2.8 cm IVSd: 1.1 cm LVIDs: 3.0 cm EDV(Teich): 62.1 ml Ao root area: 6.1 cm2 LVPWd: 1.3 cm ESV(Teich): 33.8 ml EF(Teich): 45.6 % Time Measurements MM R-R int: 0.06 sec MM HR: 1051 BPM Doppler Measurements & Calculations MV E max tamir: MV dec slope: Ao V2 max: LV V1 max P.6 cm/sec 100.5 cm/sec 2.3 mmHg MV A max tamir: 934.2 cm/sec2 Ao max P.0 mmHgLV V1 max: 70.5 cm/sec MV dec time: 0.06 sec 76.0 cm/sec MV E/A: 0.86 PA V2 max: PI end-d tamir: TR max tamir: 85.3 cm/sec 193.4 cm/sec 513.5 cm/sec PA max P.9 mmHg TR max P.5 mmHg Left Ventricle The left ventricle is grossly normal size. There is mild concentric left ventricular hypertrophy. Left ventricular systolic function is low normal. The Ejection Fraction estimate is 50-55%. Flattened septum is consistent with RV pressure/volume overload. No regional wall motion abnormalities noted. Right Ventricle The right ventricle is severely dilated. The right ventricular systolic function is moderate to severely reduced. Atria The right atrium is mild to moderately dilated. Mitral Valve The mitral valve is grossly normal. There is a trace amount of mitral regurgitation. Aortic Valve The aortic valve opens well. The aortic valve is normal in structure and function. The aortic valve is trileaflet. There is no aortic valve stenosis. No aortic regurgitation is present. Tricuspid Valve The tricuspid valve leaflets are thickened and/or calcified, but open well. There is a moderate amount of tricuspid regurgitation. Right ventricular systolic pressure is estimated to be elevated at >60mmHg. There is servere pulmonary hypertension by echo. Pulmonic Valve The pulmonic valve is not well seen, but is grossly normal. There is a trace amount of pulmonic regurgitation. Great Vessels The aortic root is normal size. The inferior vena cava appeared normal and decreased < 50% with respiration (RAP 10-15 mmHg). Effusions Minimal pericardial effusion. There are no echocardiographic indications of cardiac tamponade. : DC BURNETT, Leno
[2019-08-31 12:19] VITALS: BP 108/85
[2019-08-31] MEDS ORDERED: HEPARIN SOD (PORCINE) 1,000 UNIT/ML 10 ML VIAL IV ONE (14:55)
[2019-08-31] MEDS ORDERED: HEPARIN SODIUM,PORCINE/D5W 25,000 UNIT/250 ML RTUINJ IV PRN (14:55)
[2019-08-31] MEDS ORDERED: DEXTROSE 40% GEL 15 GM TUBE PO PRN ×2 (15:07)
[2019-08-31] MEDS ORDERED: GLUCAGON,HUMAN RECOMB 1 MG INJ SUBCUT PRN (15:07)
[2019-08-31] MEDS ORDERED: DEXTROSE 50%-WATER 25 GM/50 ML DISP.SYRIN IV PRN ×2 (15:07)
--- NOTE | 2019-08-31 15:15 | PDOC TRANSFER SUMMARY ---
General Admission Date/PCP: 08/31/19 04:51 TAVIA MARQUEZ MD Admission Date: 08/31/19 Transfer Date: 08/31/19 Accepting Facility: [facility] Accepting Physician: Dr. Will Resuscitation Status: Full Code - Transfer Diagnosis (1) Cor pulmonale, acute Is this a current diagnosis for this admission?: Yes (2) Bilateral pulmonary embolism Is this a current diagnosis for this admission?: Yes (3) Obesity (BMI 30.0-34.9) Is this a current diagnosis for this admission?: Yes (4) Tobacco abuse Is this a current diagnosis for this admission?: Yes (5) Asthma Is this a current diagnosis for this admission?: Yes - Transfer Medications Home Medications: Albuterol Sulfate [Proair HFA Inhalation Aerosol 8.5 gm MDI] 2 puff IH Q4H PRN 08/31/19 Fluticasone Propionate [Flonase Nasal [place] 50 Mcg/[place] 16 gm] 1 spray NASL DAILYP PRN 08/31/19 Transfer Medications: Current Medications Acetaminophen (Tylenol 325 Mg Tablet) 650 mg PO Q4HP PRN PRN Reason: FEVER >101 Stop: 09/30/19 04:12 Albuterol/Ipratropium (Duoneb 3 Ml Ampul) 3 ml NEB [id number] BRENDA Stop: 09/30/19 07:59 Last Admin: 08/31/19 13:37 Dose: 3 ml Documented by: Famotidine (Pepcid 20 Mg Tablet) 20 mg PO Q12 BRENDA Stop: 09/30/19 09:59 Last Admin: 08/31/19 10:05 Dose: 20 mg Documented by: Fluticasone/Vilanterol (Breo 200-25 Mcg Ellipta 14 Dose/Dpi) 1 inh IH DAILY BRENDA Stop: 09/30/19 09:59 Last Admin: 08/31/19 10:06 Dose: 1 inhaler Documented by: Heparin Sodium (Porcine) (Heparin Inj 1,000 Unit/Ml 10 Ml Vial) 8,300 unit 80 unit/kg (8300 unit) IV NOW ONE Stop: 08/31/19 14:56 Heparin Sodium (Porcine) (Heparin Inj 1,000 Unit/Ml 10 Ml Vial) 0 - 15,000 unit IV .BOLUS PER PROTOCOL PRN; Protocol PRN Reason: RESPOND TO aPTT VALUE Stop: 09/30/19 17:55 Hydralazine HCl (Apresoline Inj/Pf 20 Mg/1 Ml Sdv) 10 mg IV Q3HP PRN PRN Reason: Give For Sbp > [150] Stop: 09/30/19 04:18 Heparin Sodium/Dextrose (Heparin Rtu 25,000 Unit/250 Ml D5w Premix) 250 mls @ 0 mls/hr IV CONTINUOUS PRN; Protocol PRN Reason: THIS MED IS NOT "PRN" Stop: 09/30/19 14:54 Magnesium Hydroxide (Milk Of Magnesia 30 Ml Udcup) 30 ml PO HSP PRN PRN Reason: FOR CONSTIPATION Stop: 09/30/19 04:12 Methylprednisolone Sodium Succinate (Solu-Medrol Inj/Pf 40 Mg/1 Ml Sdv) 40 mg IV Q8 BRENDA Stop: 09/30/19 05:59 Last Admin: 08/31/19 13:53 Dose: 40 mg Documented by: Metoprolol Tartrate (Lopressor Inj/Pf 5 Mg/5 Ml Sdv) 2.5 mg IV Q6HP PRN PRN Reason: Give For Hr > [140] Stop: 09/30/19 04:18 Nicotine (Nicoderm 7 Mg/24 Hr Transdermal Patch) 1 each TD DAILY [facility] Stop: 10/01/19 09:59 Ondansetron HCl (Zofran Inj/Pf 4 Mg/2 Ml Sdv) 4 mg IV Q4HP PRN PRN Reason: FOR NAUSEA/VOMITING Stop: 09/30/19 04:12 Last Admin: 08/31/19 05:06 Dose: 4 mg Documented by: Oxycodone/Acetaminophen (Percocet 5-325 Mg Tablet) 1 tab PO Q4HP PRN PRN Reason: FOR PAIN SCALE 3-5 Stop: 09/07/19 04:12 Last Admin: 08/31/19 10:05 Dose: 1 tab Documented by: Promethazine HCl (Phenergan Inj 25 Mg/1 Ml Vial) 6.25 mg IV Q4HP PRN PRN Reason: FOR NAUSEA/VOMITING Stop: 09/30/19 04:12 Temazepam (Restoril 15 Mg Capsule) 15 mg PO HSP PRN PRN Reason: SLEEP OR INSOMNIA Stop: 09/07/19 04:12 - Allergies Allergies/Adverse Reactions: onion Allergy (Uncoded 09/17/17 23:41) - Diet/Activity Discharge Diet: Other (Comments) - NPO Hospital Course Hospital Course: Per H&P by Dr. Marquez: ELYSIA RDZ is a 28 year old female past medical history of ADHD, asthma, tobacco abuse, obesity, presenting to ED complaining of acute onset shortness of breath associated with pleuritic chest pain. Patient had presented to ED 24 hours prior to admission was diagnosed with asthma exacerbation and since home. Patient presented back to ED stating that her shortness of breath is gotten worse to the point that she cannot ambulate across her room without sitting down. Patient is a current smoker and is on oral contraceptives for the last 4 years otherwise she denies any recent trauma, recent hospitalization, recent immobilization, recent travel, any previous history of PE or DVT, any lower extremity or joint swelling, or any history of malignancy. She denies any cough, fever, nausea, chills, diarrhea, abdominal pain, constipation, urinary symptoms, In ED chest showed bilateral pulmonary emboli. Course: Patient was admitted to the medical floor on continuous cardiac telemetry. She was placed on full dose Lovenox. STAT echocardiogram was obtained; revealed flattened septum consistent with RV volume overload, a severely dilated right ventricle, and severe pulmonary hypertension. Consult was obtained at [facility] with Dr. Smith, Radiology, regarding possible CDT. Dr. Smith facilitated a consult with Dr. Will, Vascular Surgery. Dr. Will has graciously accepted this patient into his care. She remains hemodynamically stable, though mildly tachycardic (HR 110-120) and oxygen dependant (SpO2 92% on 2 lpm). Physical Exam Vital Signs: Temp Pulse Resp BP Pulse Ox 97.6 F 103 H 18 108/85 92 08/31/19 11:36 08/31/19 13:37 08/31/19 13:37 08/31/19 11:36 08/31/19 13:37 Intake & Output 08/30/19 08/31/19 09/01/19 06:59 06:59 06:59 Intake Total 120 Balance 120 Weight 103.3 kg General appearance: PRESENT: no acute distress, cooperative, obese, well- developed, well-nourished Head exam: PRESENT: atraumatic, normocephalic Eye exam: PRESENT: conjunctiva pink, EOMI, PERRLA. ABSENT: scleral icterus Ear exam: PRESENT: normal external ear exam Mouth exam: PRESENT: moist, tongue midline Respiratory exam: PRESENT: clear to auscultation magali, decreased breath sounds - bibasilar, symmetrical, unlabored, other - Pleurisy. Supplemental O2. ABSENT: rales, rhonchi, wheezes Cardiovascular exam: PRESENT: RRR, +S1, +S2, tachycardia. ABSENT: diastolic murmur, rubs, systolic murmur Pulses: PRESENT: normal dorsalis pedis pul Vascular exam: PRESENT: normal capillary refill Extremities exam: PRESENT: full ROM. ABSENT: calf tenderness, clubbing, pedal edema Neurological exam: PRESENT: alert, awake, oriented to person, oriented to place, oriented to time, oriented to situation, CN II-XII grossly intact. ABSENT: motor sensory deficit Psychiatric exam: PRESENT: anxious, appropriate affect, normal mood. ABSENT: homicidal ideation, suicidal ideation Skin exam: PRESENT: dry, intact, warm. ABSENT: cyanosis, rash Results Laboratory Results: 08/31/19 03:04 08/31/19 03:04 08/31/19 08/31/19 08/31/19 03:04 03:04 03:04 WBC 12.1 H RBC 4.71 Hgb 13.1 Hct 39.4 MCV 84 MCH 27.8 MCHC 33.2 RDW 13.6 Plt Count 359 Seg Neutrophils % 76.6 Sodium 137.6 Potassium 4.8 Chloride 109 H Carbon Dioxide 21 L Anion Gap 8 BUN 14 Creatinine 1.02 Est GFR ( Amer) > 60 Glucose 147 H Calcium 9.1 Total Bilirubin 0.6 AST 100 H Alkaline Phosphatase 76 Total Protein 6.5 Albumin 3.6 Serum HCG, Qual NEGATIVE 08/31/19 03:04 Troponin I 0.059 Impressions: Chest X-Ray 08/31/19 00:00 IMPRESSION: 1. No acute pulmonary findings. Chest/Abdomen CTA 08/31/19 02:52 IMPRESSION: Bilateral pulmonary emboli. This is significant thrombus burden. There is evidence of right heart strain. These findings were discussed personally by phone with, and an understanding was acknowledged by, Dr. Miller on 08/31/2019 2:38 AM CDT. . Plan Time Spent: Greater than 30 Minutes
[2019-08-31 15:25] LABS: ABSOLUTE LYMPHOCYTES (AUTO) 1.2 10^3/uL (0.5-4.7); ABSOLUTE MONOCYTES (AUTO) 0.4 10^3/uL (0.1-1.4); ABSOLUTE NEUT (AUTO) 8.8 10^3/uL (1.7-8.2); BASOPHILS % (AUTO) 0.2 % (0-2); HEMATOCRIT 39.6 % (36.0-47.0); HEMOGLOBIN 13.3 g/dL (12.0-15.5); LYMPHOCYTES % (AUTO) 11.7 % (13-45); MEAN CORPUSCULAR HEMOGLOBIN 28.5 pg (27.0-33.4); MEAN CORPUSCULAR HGB CONC 33.5 g/dL (32.0-36.0); MEAN CORPUSCULAR VOLUME 85 fl (80-97); MONOCYTES % (AUTO) 3.7 % (3-13); PLATELET COUNT 370 10^3/uL (150-450); RED BLOOD COUNT 4.66 10^6/uL (3.72-5.28); RED CELL DISTRIBUTION WIDTH 14.2 % (11.5-14.0); SEGMENTED NEUTROPHILS % (AUTO) 84.4 % (42-78); TOTAL CELLS COUNTED % (AUTO) 100 %; WHITE BLOOD COUNT 10.4 10^3/uL (4.0-10.5)
[2019-08-31 15:29] LABS: INTERNATIONAL RATION (INR) 1.25; PROTHROMBIN TIME 15.8 SEC (11.4-15.4)
[2019-08-31] MEDS ORDERED: HEPARIN SOD (PORCINE) 1,000 UNIT/ML 10 ML VIAL IV PRN (17:56)
[2019-09-01] MEDS ORDERED: NICOTINE 7 MG/24 HR PATCH.TD24 TD SCH (10:00)
== END 2019-08-31 16:05 | disposition short-term general hospital (02) ==
LOC: ER 23:44 → INTOOBSV 08-31 04:51 → EH 08-31 04:51 → 4S 08-31 05:54
PROVIDERS: ADMIT Internal Medicine; ATTEND Internal Medicine
DX: I26.09 Other pulmonary embolism with acute cor pulmonale (principal); E66.9 Obesity, unspecified; F17.200 Nicotine dependence, unspecified, uncomplicated; J45.41 Moderate persistent asthma with (acute) exacerbation; F32.9 Major depressive disorder, single episode, unspecified; Z68.34 Body mass index [BMI] 34.0-34.9, adult; Z79.3 Long term (current) use of hormonal contraceptives; Z82.49 Family history of ischemic heart disease and other diseases of the circulatory system; Z20.828 Contact with and (suspected) exposure to other viral communicable diseases; Z79.52 Long term (current) use of systemic steroids
CPT/HCPCS: 93005 ×2; 94640 ×3; 99285; 96374; 36415; 84703; 85025; 85610; 85730; 87635; 80053; 84484; 93306; 71045; 71275; 93010 ×2; G0378 ×2; J1644 ×2; J3490 ×3; J1650; J2920; J2270; J7512; J2405; C9803

== ENCOUNTER 2019-11-20 09:51 | Emergency (ER) | payer MEDICAID ==
[2019-11-20 11:04] LABS: BACTERIA (WET MOUNT) 3+ BACTERIA SEEN; EPITHELIALS (WET MOUNT) 4+ EPITHELIALS SEEN; T.VAGINALIS (WET MOUNT) NO TRICHOMONAS SEEN; WBCS (WET MOUNT) 1+ WBCS SEEN; YEAST (WET MOUNT) YEAST SEEN
--- NOTE | 2019-11-20 11:13 | ER Document Report ---
ED GI/ - General Chief Complaint: Vaginal Itching Stated Complaint: VAGINAL IRRITATION Time Seen by Provider: 11/20/19 10:23 Primary Care Provider: ZINA HUMPHRIES NP [Primary Care Provider] - Follow up as needed Notes: CHIEF COMPLAINT: Vaginal irritation HPI: 29-year-old female presenting with possible vaginal yeast infection symptoms began last night with itching and irritation. No discharge. No dysuria. No pelvic pain no fever ROS: See HPI - all other systems were reviewed and are otherwise negative Constitutional: no fever or recent illness : no dysuria, no vaginal discharge, positive vaginal itching Integumentary: no rash Allergy: no hives MEDICATIONS: I agree with the patient medications as charted by the RN. ALLERGIES: I agree with the allergies as charted by the RN. PAST MEDICAL HISTORY/PAST SURGICAL HISTORY: Reviewed and agree as charted by RN. SOCIAL HISTORY: Reviewed and agree as charted by RN. FAMILY HISTORY: No significant familial comorbid conditions directly related to patient complaint EXAM: Reviewed vital signs as charted by RN. CONSTITUTIONAL: Alert and oriented and responds appropriately to questions. 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 External genitalia normal. No skin lesions noted. Pelvic Exam: No active bleeding. Thick white vaginal discharge is noted. Cervix appears normal. No CMT. No lesions or masses. Uterus normal size and non tender. Right/Left adnexa normal size and non tender. BACK: The back appears normal and is non-tender to palpation, there is no CVA tenderness EXT: Normal ROM in all joints; no cyanosis, no effusions, no edema SKIN: Normal color for age and race; warm; dry; good turgor; no acute lesions noted NEURO: Moves all extremities equally; Motor and sensory function intact PSYCH: The patient's mood and manner are appropriate. Grooming and personal hygiene are appropriate. MDM: 29-year-old female with vaginal irritation. Appears to have vaginal Mary as well as bacterial vaginitis will place on Flagyl and Diflucan follow- up [facility] TRAVEL OUTSIDE OF THE [place] IN LAST 30 DAYS: No - Related Data Allergies/Adverse Reactions: onion Allergy (Uncoded 11/20/19 10:03) Home Medications: blood thinners. asthma Past Medical History - Social History Smoking Status: Current Every Day Smoker Chew tobacco use (# tins/day): No Frequency of alcohol use: Occasional Drug Abuse: None Family History: CAD, CVA, Hypertension Patient has homicidal ideation: No Pulmonary Medical History: Reports: Hx Asthma Neurological Medical History: Reports: Hx Migraine Renal/ Medical History: Denies: Hx Peritoneal Dialysis Psychiatric Medical History: Reports: Hx Attention Deficit Hyperactivity Disorder, Hx Depression Past Surgical History: Reports: Hx Section - Immunizations Hx Diphtheria, Pertussis, Tetanus Vaccination: Yes Hx Pneumococcal Vaccination: 02/27/11 Physical Exam - Vital signs Vitals: Temp Pulse Resp BP Pulse Ox 98.0 F 78 16 140/89 H 99 11/20/19 09:56 11/20/19 09:56 11/20/19 09:56 11/20/19 09:56 11/20/19 09:56 Course - Vital Signs Vital signs: Temp Pulse Resp BP Pulse Ox 98.0 F 78 16 140/89 H 99 11/20/19 10:03 11/20/19 09:56 11/20/19 09:56 11/20/19 09:56 11/20/19 09:56 Discharge - Discharge Clinical Impression: Vagina, candidiasis, Bacterial vaginitis Condition: Stable Disposition: HOME, SELF-CARE Instructions: Vaginal Yeast Infection ([facility]), Vaginosis, Bacterial ([facility]) Additional Instructions: It appears that you have both a vaginal yeast infection and bacterial vaginitis which is a bacterial infection. Take the Flagyl and Diflucan to treat these. Follow-up with your [facility] for further evaluation and treatment call for appointment Prescriptions: Fluconazole [Diflucan] 150 mg PO DAILY #2 tablet Metronidazole [Flagyl 500 mg Tablet] 500 mg PO BID #14 tablet Referrals: ZINA HUMPHRIES, PRODUCT LEAD [Primary Care Provider] - Follow up as needed
[2019-11-20 11:29] LABS: APPEARANCE,URINE SLIGHTLY-CLOUDY; BILIRUBIN,URINE NEGATIVE (NEGATIVE); COLOR,URINE YELLOW; GLUCOSE, URINE NEGATIVE (NEGATIVE); KETONES,URINE NEGATIVE (NEGATIVE); LEUKOCYTE ESTERASE,URINE SMALL (NEGATIVE); NITRITE,URINE NEGATIVE (NEGATIVE); PROTEIN,URINE NEGATIVE (NEGATIVE); URINE SPECIFIC GRAVITY 1.028
[2019-11-20 12:19] VITALS: BP 128/87
[2019-11-20 12:34] LABS: CHLAM PCR NOT DETECTED (NOT DETECT)
== END 2019-11-20 12:01 | disposition home or self-care (01) ==
LOC: ER 09:51
DX: N76.0 Acute vaginitis (principal); B96.89 Other specified bacterial agents as the cause of diseases classified elsewhere; J45.909 Unspecified asthma, uncomplicated; Z79.899 Other long term (current) drug therapy; Z91.018 Allergy to other foods
CPT/HCPCS: 81001; 81025; 87210; 87491; 87591; 99282

== ENCOUNTER 2020-02-25 16:03 | Emergency (ER) | payer MEDICAID ==
[2020-02-25 16:55] VITALS: BP 125/72
--- NOTE | 2020-02-25 17:32 | ER Document Report ---
ED Medical Screen (RME) - General Chief Complaint: Abdominal Pain Stated Complaint: ABDOMINAL PAIN Time Seen by Provider: 02/25/20 17:27 Primary Care Provider: ZINA HUMPHRIES NP [Primary Care Provider] - Follow up as needed Mode of Arrival: Ambulatory Information source: Patient Notes: HPI; 18-week female 5 para 4 presents to the emergency room complaining of abdominal cramping and constipation for the past 4 days. States she took an [id number] laxative today without any relief. Noticed some blood when she wiped but did not have a stool. Denies any vaginal bleeding no vaginal discharge. No nausea no vomiting PE: Alert and oriented x3. Lungs: Clear to auscultation without rales, rhonchi, wheezes. Heart: Regular rate rhythm without murmurs, rubs, gallops. Offered an x-ray to rule out constipation patient refused secondary to . I have greeted and performed a rapid initial assessment of this patient. A comprehensive ED assessment and evaluation of the patient, analysis of test results and completion of the medical decision making process will be conducted by additional ED providers. I have specifically instructed the patient or family members with the patient to immediately return to any nursing staff should anything change in the patient's condition or with their chief complaint. TRAVEL OUTSIDE OF THE [place] IN LAST 30 DAYS: No - Related Data Allergies/Adverse Reactions: onion Allergy (Uncoded 11/20/19 10:03) Past Medical History Pulmonary Medical History: Reports: Hx Asthma Neurological Medical History: Reports: Hx Migraine Renal/ Medical History: Denies: Hx Peritoneal Dialysis Psychiatric Medical History: Reports: Hx Attention Deficit Hyperactivity Disorder, Hx Depression Past Surgical History: Reports: Hx Section - Immunizations Hx Diphtheria, Pertussis, Tetanus Vaccination: Yes Physical Exam - Vital signs Vitals: Temp Pulse Resp BP Pulse Ox 98.2 F 105 H 18 125/72 100 02/25/20 16:52 02/25/20 16:52 02/25/20 16:52 02/25/20 16:52 02/25/20 16:52 Course - Vital Signs Vital signs: Temp Pulse Resp BP Pulse Ox 98.2 F 105 H 18 125/72 100 02/25/20 16:52 02/25/20 16:52 02/25/20 16:52 02/25/20 16:52 02/25/20 16:52 Doctor's Discharge - Discharge Referrals: ZINA HUMPHRIES CLINICAL UNIT COORDINATOR [Primary Care Provider] - Follow up as needed
[2020-02-25 18:33] LABS: ABSOLUTE LYMPHOCYTES (AUTO) 1.8 10^3/uL (0.5-4.7); ABSOLUTE MONOCYTES (AUTO) 0.4 10^3/uL (0.1-1.4); ABSOLUTE NEUT (AUTO) 5.1 10^3/uL (1.7-8.2); BASOPHILS % (AUTO) 0.2 % (0-2); EOSINOPHILS % (AUTO) 0.6 % (0-6); HEMATOCRIT 34.5 % (36.0-47.0); HEMOGLOBIN 11.8 g/dL (12.0-15.5); LYMPHOCYTES % (AUTO) 24.7 % (13-45); MEAN CORPUSCULAR HEMOGLOBIN 28.4 pg (27.0-33.4); MEAN CORPUSCULAR HGB CONC 34.3 g/dL (32.0-36.0); MEAN CORPUSCULAR VOLUME 83 fl (80-97); MONOCYTES % (AUTO) 5.1 % (3-13); PLATELET COUNT 283 10^3/uL (150-450); RED BLOOD COUNT 4.16 10^6/uL (3.72-5.28); RED CELL DISTRIBUTION WIDTH 13.5 % (11.5-14.0); SEGMENTED NEUTROPHILS % (AUTO) 69.4 % (42-78); TOTAL CELLS COUNTED % (AUTO) 100 %; WHITE BLOOD COUNT 7.3 10^3/uL (4.0-10.5)
[2020-02-25 18:44] LABS: APPEARANCE,URINE CLEAR; BILIRUBIN,URINE NEGATIVE (NEGATIVE); COLOR,URINE YELLOW; GLUCOSE, URINE NEGATIVE (NEGATIVE); KETONES,URINE 20 mg/dL (NEGATIVE); LEUKOCYTE ESTERASE,URINE TRACE (NEGATIVE); NITRITE,URINE NEGATIVE (NEGATIVE); PROTEIN,URINE NEGATIVE (NEGATIVE); UROBILINOGEN,URINE NEGATIVE mg/dL (<2.0)
[2020-02-25 18:49] LABS: INTERNATIONAL RATION (INR) 1.04; PROTHROMBIN TIME 13.8 SEC (11.4-15.4)
[2020-02-25 18:52] LABS: ALKALINE PHOSPHATASE 81 U/L (38-126); ANION GAP 7 (5-19); ASPARTATE AMINO TRANSFERASE 18 U/L (14-36); BILIRUBIN,DIRECT 0.2 mg/dL (0.0-0.4); BILIRUBIN,TOTAL 0.4 mg/dL (0.2-1.3); BLOOD UREA NITROGEN 6 mg/dL (7-20); CALCIUM 9.5 mg/dL (8.4-10.2); CARBON DIOXIDE 25 mmol/L (22-30); CHLORIDE 104 mmol/L (98-107); GLUCOSE 85 mg/dL (75-110); POTASSIUM 4.6 mmol/L (3.6-5.0); TOTAL PROTEIN 7.1 g/dL (6.3-8.2)
--- NOTE | 2020-02-25 19:01 | RADIOLOGY REPORT (SQ) ---
EXAM DESCRIPTION: U/S OB LIMITED IMAGES COMPLETED DATE/TIME: 02/25/2020 6:42 pm REASON FOR STUDY: cramping COMPARISON: None. TECHNIQUE: Limited transabdominal grayscale ultrasound for evaluation of specific requested obstetri gabriella parameters. LIMITATIONS: None. FINDINGS: CERVICAL LENGTH: 2.9 cm Closed. OSKAR: Adequate FHR: 158 beats per minute. PRESENTATION: Cephalic. PLACENTA: Anterior ANATOMY: Not assessed OTHER: Biometrics demonstrating normal, symmetric growth with size concordant with dates. IMPRESSION: LIMITED OBSTETRICAL ULTRASOUND WITH MEASURED PARAMETERS DELINEATED ABOVE. Trimester of : Second trimester - 13 weeks 1 day to 27 weeks 6 days. TECHNICAL DOCUMENTATION: JOB ID: [id number] [employer]- All Rights Reserved Reading location - IP/workstation name: [email or web address]
== END 2020-02-25 23:25 | disposition left against medical advice (07) ==
LOC: ER 16:03
DX: O99.612 Diseases of the digestive system complicating pregnancy, second trimester (principal); K59.00 Constipation, unspecified; O26.892 Other specified pregnancy related conditions, second trimester; R10.9 Unspecified abdominal pain; O99.512 Diseases of the respiratory system complicating pregnancy, second trimester; J45.909 Unspecified asthma, uncomplicated; Z3A.17 17 weeks gestation of pregnancy; Z53.20 Procedure and treatment not carried out because of patient's decision for unspecified reasons; Z91.018 Allergy to other foods
CPT/HCPCS: 36415; 76815; 80053; 81001; 85025; 85610; 99281